=== PATIENT | male | born 1955 | race African-American/Black ===

== ENCOUNTER 2019-08-05 11:52 | Inpatient (IN) | payer OTHER ==
[~2019-08-05] VITALS: Ht 172.7 cm; Wt 95.3 kg
--- NOTE | 2019-08-05 14:05 | NUR ---
[employer] DRIVER NOTE: 63 YEAR OLD MALE ADMITTED TO [facility] FOR CLINICAL TRIAL ON VOLUNTARY STATUS. PT WITH A HISTORY OF SCHIZOPHRENIA WITH ONE PREVIOUS 5150 ADMISSION. PT WITH MEDICAL HISTORY OF HTN. PT DENIES CURRENT SI/HI. REPORTS +AH OF "VOICES" DENIES CAH AND +VH OF "SHADOWS". PT IS AMBULATORY WITH STEADY GAIT. A+OX3, ABLE TO MAKE NEEDS KNOWN. NKDA. PT IS A [employer] WITNESS WITH [employer] FOR NO BLOOD PRODUCTS. COPY PLACED IN CHART. PT IS CONTINENT AND INDEPENDENT WITH ADLS. SKIN INTACT ON ADMISSION.PT ORIENTED TO THE UNIT AND PATIENTS RIGHTS PACKET PROVIDED. PATIENT ID BAND PLACED. VSS, AFEBRILE. WILL CONT TO MONITOR FOR SAFETY AND BEHAVIOR PER [facility] PROT[facility].
[2019-08-05] MEDS ORDERED: MIRT30TA7 PO (14:21)
[2019-08-05] MEDS ORDERED: TAMS-12 PO ×2 (14:21→15:24)
[2019-08-05] MEDS ORDERED: ARIP30TA21 MT (14:21)
[2019-08-05] MEDS ORDERED: MULT-16 MT (14:21)
[2019-08-05] MEDS ORDERED: AMLO-62 MT (14:21)
[2019-08-05] MEDS ORDERED: MAGNESIUM HYDROXIDE 30 ML UDC PO PRN ×2 (14:30→16:30)
[2019-08-05] MEDS ORDERED: ACETAMINOPHEN ES 500 MG TABLET PO PRN (14:30)
[2019-08-05] MEDS ORDERED: MAG HYDROX/AL HYDROX/SIMETH 30 ML UDC PO PRN ×2 (14:30→16:30)
[2019-08-05] MEDS ORDERED: IBUPROFEN 200 MG TABLET PO PRN (14:30)
[2019-08-05] MEDS ORDERED: BENZTROPINE MESYLATE (1 MG) 1 MG TABLET PO PRN ×2 (14:30)
[2019-08-05] MEDS ORDERED: PROPRANOLOL HCL 10 MG TABLET PO PRN (14:30)
[2019-08-05 16:00] VITALS: BP 120/79
[2019-08-05 16:17] VITALS: BP 120/79
[2019-08-05] MEDS ORDERED: ACETAMINOPHEN 325 MG TABLET PO PRN (16:30)
[2019-08-05] MEDS ORDERED: LORAZEPAM 0.5 MG TABLET PO PRN (16:30)
[2019-08-05] MEDS ORDERED: ZOLPIDEM TARTRATE 10 MG TABLET PO PRN (16:30)
[2019-08-05] MEDS ORDERED: BLOOD SUGAR DIAGNOSTIC 1 EACH STRIP IN ONE (16:30)
[2019-08-05] MEDS ORDERED: IBUPROFEN 600 MG TABLET PO PRN (17:07)
--- NOTE | 2019-08-05 19:15 | NUR ---
[facility] RN OPENING NOTES: RECEIVED PATIENT RESTING IN BED, INTERMITTENTLY SLEEPING. A & O X 4, NO ACUTE CHANGES NOTED. NO C/O PAIN VERBALIZED. FLAT AFFECT, PATIENT VERBALIZED OF EXPERIENCING AUDITORY & VISUAL HALLUCINATIONS AT TIMES BUT FEELING OK NOW. ON CLINICAL TRIAL. AMBULATORY, STEADY, CONTINENT OF B & BM. ENVIRONMENTAL SAFETY CHECKS DONE. DENIES SI/HI AT THIS TIME. BED IN LOW LOCKED POSITION. INFORMED THE PATIENT TO CALL FOR HELP ANY TIME & PATIENT VERBALIZED UNDERSTANDING. WILL CONTINUE TO MONITOR Q15 MIN FOR SAFETY, MOOD & BEHAVIOR.
--- NOTE | 2019-08-05 19:30 | NUR ---
[facility] RN NOT: [employer] WITNESS (FYI) PER AM RN REPORT, PT IS A [employer] WITNESS WITH [employer] FOR NO BLOOD PRODUCTS. COPY PLACED IN CHART.
[2019-08-05 20:11] VITALS: BP 132/80
--- NOTE | 2019-08-05 20:35 | NUR ---
[facility] RN NOTE PATIENT'S HOME MED LIST SHOWS THAT HE WAS ON FLOMAX, AMLODIPINE & MULTIVITAMIN, AMLODIPINE HAS BEEN RECONCILED BY MD & FLOMAX HAS BEEN DISCONTINUED. CONFIRMED WITH THE PATIENT HE WOULD LIKE TO CONTINUE HIS MULTIVITAMIN, PATIENT REFUSED TO CONTINUE MULTIVITAMIN AT THIS TIME, STATED," I WAS TAKING IT A YEAR AGO, BUT I DO NOT WANT TO CONTINUE IT ANYMORE." CN MADE AWARE.
--- NOTE | 2019-08-06 06:01 | NUR ---
PATIENT WENT TO SMOKE
--- NOTE | 2019-08-06 06:20 | NUR ---
PATIENT CAME BACK TO THE UNIT FROM SMOKING.
[2019-08-06 06:38] LABS: CHOLESTEROL 155 mg/dL (<200); HDL CHOLESTEROL 48 mg/dL (40-60); LDL 109 mg/dL (0-99); TRIGLYCERIDES 58 mg/dL (30-150)
[2019-08-06 06:46] LABS: BILIRUBIN,TOTAL 0.4 mg/dL (0.2-1.0); CALCIUM, SERUM 8.7 mg/dL (8.5-10.1); CREATININE 1.2 mg/dL (0.6-1.3); POTASSIUM 3.6 mmol/L (3.5-5.1); TOTAL PROTEIN, SERUM 6.5 g/dL (6.4-8.2)
[2019-08-06 08:00] VITALS: BP 127/79
[2019-08-06] MEDS: BENAZEPRIL PO SCH (08:04)
[2019-08-06] MEDS: AMLODIPINE PO SCH (08:04)
--- NOTE | 2019-08-06 08:35 | NUR ---
RN NOTE: RECEIVED PT LYING IN BED. NO ACUTE DISTRESS NOTED. VSS, AFEBRILE. PT A+OX3, ABLE TO MAKE NEEDS KNOWN. PT COMPLIANT WITH MEDICATION ADMINISTRATION AND PLAN OF CARE. PT C/O +AH OF VOICES TELLING HIM "TO BE CAREFUL. SOMEONE WANTS TO HURT YOU" AND +VH OF "SHADOWS". PT AMBULATORY AND INDEPENDENT WITH ADLS AND INTAKE. PT IS ISOLATIVE AND WITHDRAWN WITH FLAT AFFECT. DENIES CURRENT SI/HI. WILL CONT TO MONITOR PT FOR SAFETY AND BEHAVIOR PER [facility] PROT[facility].
[2019-08-06 16:00] VITALS: BP 138/68
--- NOTE | 2019-08-06 19:24 | NUR ---
RN NOTES PATIENT AWAKE, IN BED, ALERT AND ORIENTED X 4. NO SIGNS PF ACUTE DISTRESS. DENIES SI/HI, HEARS VOICES AND SEES SHADOWS. PT IS AMBULATORY AND STEADY. DISCUSSED PLAN OF CARE. BED IN LOWEST POSITION, LOCKED, AND SAFETY PRECAUTIONS IN PLACE. WILL CONTINUE TO MONITOR.
[2019-08-06 20:09] VITALS: BP 127/79
--- NOTE | 2019-08-06 20:37 | NUR ---
RN NOTES PT AMBULATING IN HALLWAY. NO ACUTE DISTRESS NOTED. PT CALM AND COOPERATIVE. COMPLIANT WITH MEDICATION ADMINISTRATION AND PLAN OF CARE. CONT TO REPORT +AH AND +VH. DENIES CAH. NO ADVERSE RXN TO MEDICATIONS NOTED. PT HAS PERIODS OF ISOLATION. FLAT AFFECT. DENIES SI/HI. WILL CONT TO MONITOR
[2019-08-07 08:00] VITALS: BP 150/94
[2019-08-07] MEDS: BENAZEPRIL PO SCH (08:31)
[2019-08-07] MEDS: AMLODIPINE PO SCH (08:31)
--- NOTE | 2019-08-07 09:00 | NUR ---
RN NOTE:Patient alert ,verbally responsive ,poor insight ,poor judgment ,easily irritable and anxious ,no interaction with peers,preoccupied with his own thoughts,patient stated "I hear voices ".patient med compliant and follow directions.
--- NOTE | 2019-08-07 13:00 | NUR ---
RN NOTE:Patient alert ,verbally responsive ,remains isolative and withdrawn stay in his room ,isolative and withdrawn ,patient mood depressed ,preoccupied with his own thoughts ,no plan for self care .
[2019-08-07 16:00] VITALS: BP 136/84
--- NOTE | 2019-08-07 19:10 | NUR ---
[facility] RN OPENING NOTE: RECEIVED PT. AMBULATING IN HALLWAY AND REQUESTED TO GO OUT AND SMOKE. NO ACUTE DISTRESS NOTED. PT CALM AND COOPERATIVE.COMPLIANT W/ PLAN OF CARE.CONT TO REPORT +AH AND +VH. DENIES CAH. NO ADVERSE REACTIONS TO MEDICATIONS NOTED. PT HAS PERIODS OF ISOLATION. FLAT AFFECT.DENIES SI/HI. WILL CONT TO MONITOR
[2019-08-07 20:03] VITALS: BP 125/84
[2019-08-07] MEDS: ZOLPIDEM TARTRATE 10 MG TABLET PO PRN (21:31)
--- NOTE | 2019-08-07 21:31 | NUR ---
[facility] RN NOTE: INSOMNIA PT. UNABLE TO SLEEP AND REQUESTED AMBIEN. ADMINISTERED AMBIEN 10 MG PO PRN ORDERED. WILL CONTINUE TO MONITOR FOR SAFETY AND BEHAVIOR.
[2019-08-08 08:00] VITALS: BP 142/98
--- NOTE | 2019-08-08 08:07 | NUR ---
[facility]/RN-NOTES RECEIVED PATIENT SLEEPING WITH BREATHING EVEN AND NONLABORED EASILY AROUSE. NO ACUTE DISTRESS NOTED.
[2019-08-08] MEDS: AMLODIPINE PO SCH (08:19)
[2019-08-08] MEDS: BENAZEPRIL PO SCH (08:19)
[2019-08-08 16:00] VITALS: BP 129/87
--- NOTE | 2019-08-08 18:39 | NUR ---
[facility]/RN-NOTES PATIENT LAYING IN BED CALM AND COOPERATIVE ABLE TO MAKE NEEDS KNOW. NO ACUTE DISTRESS NOTED. PATIENT OUT SEVERAL TIMES FOR SMOKING. WILL ENDORSE TO INCOMING NURSE FOR CONTINUITY OF CARE.
[2019-08-08 20:00] VITALS: BP 133/86
[2019-08-08] MEDS: ZOLPIDEM TARTRATE 10 MG TABLET PO PRN (20:32)
--- NOTE | 2019-08-08 20:48 | NUR ---
[facility] RN NOTE: PT REPORTED "I HAVE NOT SLEPT WELL FOR A WHILE, I NEED SOMETHING TO HELP ME SLEEP". AMBIEN 10MG 1 TAB GIVEN PO ORDERED AT 2031. WILL CONTINUE TO MONITOR.
--- NOTE | 2019-08-09 00:19 | NUR ---
[facility] RN NOTES: PT IS CURRENTLY SLEEPING, NO S/S OF ANY DISTRESS. WILL CONTINUE TO MONITOR.
[2019-08-09 00:21] VITALS: BP 133/86
--- NOTE | 2019-08-09 03:09 | NUR ---
[facility] RN NOTE: RECEIVED PT AT 1900 IN BED, AWAKE, ALERT AND ORIENTED X3. CALM AND COOPERATIVE, NO S/S OF DISTRESS. RESPIRATION EVEN AND UNLABORED WITH EQUAL RISE AND FALL OF THE CHEST, ON ROOM AIR. PT DENIES SI AT THIS TIME. OFFERED FLUID AND SNACK TOLERATED. SAFETY AND FALL PRECAUTION OBSERVED, CALL MAR WITHIN REACH. Q15 MINUTES OBSERVATION CONTINUED. WILL CONTINUE TO MONITOR PT FOR MOOD, SAFETY AND BEHAVIOR.
[2019-08-09 07:00] VITALS: BP 133/86
[2019-08-09 08:00] VITALS: BP 130/95
--- NOTE | 2019-08-09 08:28 | NUR ---
RN-CO: Patient has a bright affect, visible in the unit and attending group activities in the dining room. He stated that his mood is good, but he has auditory hallucinations telling him to take care of himself. He also stated that last night he had visual hallucinations " they visited me in my room."
[2019-08-09] MEDS: BENAZEPRIL PO SCH (08:38)
[2019-08-09] MEDS: AMLODIPINE PO SCH (08:38)
[2019-08-09 16:00] VITALS: BP 119/79
[2019-08-09 20:00] VITALS: BP 141/100
--- NOTE | 2019-08-09 20:30 | NUR ---
NURSES NOTES: RECEIVED PATIENT IN THE ROOM AWAKE, TALKS MINIMALLY TO STAFF HOWEVER ABLE TO MAKE HIS NEEDS KNOWN. NO HALLUCINATIONS NOTED, NO COMPLAINS OF PAIN NOTED THIS TIME. WILL MONITOR PATIENT. AROUND 2037- PATIENT REQUESTED FOR HIS SLEEPING PILL. ADMINISTERED AMBIEN 10 MG PO A PRN ORDER. WILL MONITOR PATIENT'S SLEEPING PATTERN AND EFFECTIVENESS OF THE MEDICATION.
[2019-08-09] MEDS: ZOLPIDEM TARTRATE 10 MG TABLET PO PRN (20:38)
[2019-08-10 08:00] VITALS: BP 134/97
[2019-08-10] MEDS: BENAZEPRIL PO SCH (08:19)
[2019-08-10] MEDS: AMLODIPINE PO SCH (08:19)
--- NOTE | 2019-08-10 08:55 | NUR ---
[facility]/RN-NOTES RECEIVED PATIENT AMBULATING IN THE HALLWAY NO ACUTE DISTRESS NOTED. COMPLIANT WITH MEDICATIONS. WILL ENDORSE TO INCOMING NURSE FOR CONTINUITY OF CARE.
[2019-08-10 16:00] VITALS: BP 123/79
--- NOTE | 2019-08-10 17:55 | NUR ---
[facility]/RN-NOTES PATIENT CALM,QUIET AND COOPERATIVE NO ACUTE DISTRESS NOTED. COMPLIANT WITH MEDICATIONS.WILL ENDORSE TO INCOMING SHIFT FOR CONTINUITY OF CARE.
[2019-08-10 20:22] VITALS: BP 120/90
[2019-08-10] MEDS: ZOLPIDEM TARTRATE 10 MG TABLET PO PRN (21:11)
[2019-08-10] MEDS ORDERED: AMIT50TA3 PO (21:55)
[2019-08-10] MEDS ORDERED: NAPR-1143 PO (21:55)
[2019-08-10] MEDS ORDERED: OMEP20TA5 PO (21:55)
[2019-08-10] MEDS ORDERED: CITA20TA19 PO (21:55)
[2019-08-10] MEDS ORDERED: ROSU20TA2 PO (21:55)
[2019-08-10] MEDS ORDERED: AMLO5TAB4 PO (21:55)
[2019-08-10] MEDS ORDERED: RISP0.5T20 PO (21:55)
[2019-08-10] MEDS ORDERED: METF-440 PO (21:55)
[2019-08-10] MEDS ORDERED: ASCO500T21 PO (21:55)
[2019-08-10] MEDS ORDERED: ASPI-1420 PO (21:55)
[2019-08-10] MEDS ORDERED: AMIT10TA6 PO (21:55)
--- NOTE | 2019-08-10 22:01 | NUR ---
[facility] RN NOTE: PT REQUESTED FOR SLEEP MEDICATION DUE TO INSOMNIA, AMBIEN 10MG 1 TAB GIVEN PO ORDERED. PT CURRENTLY LAYING IN BED, CALM AND QUIET, WILL CONTINUE TO MONITOR.
--- NOTE | 2019-08-11 06:43 | NUR ---
[facility] RN CLOSING NOTE: PT CURRENTLY SLEEPING. RESPIRATION EVEN AND UNLABORED WITH EQUAL RISE AND FALL OF THE CHEST ON ROOM AIR. NO S/S OF ANY DISTRESS AT THIS TIME. NO BEHAVIORAL ISSUES THIS SHIFT. ENDORSING TO AM SHIFT
[2019-08-11 08:00] VITALS: BP 136/95
[2019-08-11] MEDS: AMLODIPINE PO SCH (08:45)
[2019-08-11] MEDS: BENAZEPRIL PO SCH (08:45)
--- NOTE | 2019-08-11 09:00 | NUR ---
Patient alert ,verbally responsive ,poor insight ,poor judgment ,patient stay in his room ,isolative and withdrawn ,no interaction with peers patient stated "I hear voices telling me people are out there to get me". patient med compliant and follow directions.
--- NOTE | 2019-08-11 13:00 | NUR ---
Patient remains isolative and withdrawn ,no interaction with peers patient leave his room for smoking ,preoccupied with his own thoughts ,refused to attend groups ,no plan for self care .
[2019-08-11 16:00] VITALS: BP 132/85
[2019-08-11] MEDS: ZOLPIDEM TARTRATE 10 MG TABLET PO PRN (21:06)
--- NOTE | 2019-08-11 21:08 | NUR ---
[facility] RN NOTE: INSOMNIA PATIENT STATED THAT HE IS UNABLE TO SLEEP & REQUESTED & INSISTED TO GET HIS AMBIEN RIGHT NOW, PRN AMBIEN 10 MG 1 TAB PO GIVEN, WILL CONTINUE TO MONITOR FOR EFFECTIVENESS.
[2019-08-11 21:15] VITALS: BP 114/79
[2019-08-12 08:00] VITALS: BP 140/88
[2019-08-12] MEDS: AMLODIPINE PO SCH (08:30)
[2019-08-12] MEDS: BENAZEPRIL PO SCH (08:30)
--- NOTE | 2019-08-12 09:00 | NUR ---
RN NOTE- RN NOTE- PT ALERT ORIENTED PERSON PLACE PURPOSE. WITHDRAWN ISOLATIVE MONOSYLLABIC RESPONSES TO QUERY [facility] CONTACT DENIES ALL. PO INTAKE GOOD PACES UNIT NO BEHAVIORAL ISSUES. NOT RESPONDING DIRECTABLE
[2019-08-12 16:00] VITALS: BP 123/71
[2019-08-12] MEDS: LORAZEPAM 1 MG TABLET FOR AGITATION PO PRN (19:25)
--- NOTE | 2019-08-12 20:05 | NUR ---
[facility] RN Note: Patient pacing along the hallway,appears depressed,restless,anxious,blunted affect,no verbalization of thoughts and feelings,no social interactions with peers,guarded and paranoid upon approach.Patient requested for anti anxiety medication,Ativan 1 mg PO given and will monitor for the effectiveness of the medication.Will continue to monitor q15 min rounds for safety.
[2019-08-12 20:10] VITALS: BP 120/79
[2019-08-12] MEDS: ZOLPIDEM TARTRATE 10 MG TABLET PO PRN (21:33)
[2019-08-13 08:00] VITALS: BP 116/83
[2019-08-13] MEDS: BENAZEPRIL PO SCH (08:50)
[2019-08-13] MEDS: AMLODIPINE PO SCH (08:50)
--- NOTE | 2019-08-13 09:00 | NUR ---
RN NOTE:Patient alert ,verbally responsive ,poor insight ,disorganized thoughts no interaction with peers ,no plan for self care .Patient still hearing voices ,will continue to monitor for safety q15 minutes .
--- NOTE | 2019-08-13 13:00 | NUR ---
RN NOTE:Patient remains isolative and withdrawn , stay in his room ,will continue to monitor for safety q15 minutes .
[2019-08-13 16:00] VITALS: BP 146/92
[2019-08-13] MEDS: LORAZEPAM 1 MG TABLET FOR AGITATION PO PRN (18:20)
--- NOTE | 2019-08-13 18:22 | NUR ---
RN NOTE:PATIENT C/O ANXIETY ,MEDICATED WITH ATIVAN 1MG PO X1 ,PATIENT STATED "I STILL HEARING VOICES AND I FEEL ANXIOUS".WILL CONTINUE TO MONITOR .
--- NOTE | 2019-08-13 20:28 | NUR ---
[facility] RN Note: Patient pacing on the unit,calm,cooperative,keep to himself,blunted affect,appears depressed,no verbalization of thoughts and feelings,keep to himself,remain preoccupied to his own thoughts.Patient requested to have sleeping pills be given after taking his smoke break.No s/so f acute distress noted.Will continue to monitor q15 min rounds for safety.
[2019-08-13 20:34] VITALS: BP 109/64
[2019-08-13] MEDS: ZOLPIDEM TARTRATE 10 MG TABLET PO PRN (20:37)
[2019-08-14 08:00] VITALS: BP 115/81
[2019-08-14] MEDS: AMLODIPINE PO SCH (08:39)
[2019-08-14] MEDS: BENAZEPRIL PO SCH (08:39)
--- NOTE | 2019-08-14 10:24 | NUR ---
RN-CO: Patient is visible in the unit, attends group activities and 1:1 activities. With periods of pacing in the hallway, and preoccupied with his thoughts. He is redirectable and follows directions, however he is focus on smoking. He has an appropriate affect.
[2019-08-14] MEDS: LORAZEPAM 1 MG TABLET FOR AGITATION PO PRN (14:32)
--- NOTE | 2019-08-14 14:34 | NUR ---
RN [facility] NOTE JEREMY STATED "CAN I GET AN ATIVAN I'M FEELING REALLY ANXIOUS". ADMINISTERED ATIVAN 1MG TAB PRN @1432. WILL REASSESS AND CONTINUE TO MONITOR Q15MIN FOR SAFETY AND BEHAVIOR.
[2019-08-14 16:00] VITALS: BP 132/71
--- NOTE | 2019-08-14 19:20 | NUR ---
[facility] RN OPENING NOTE: RECEIVED PT. RESTING HIS ROOM. NO ACUTE DISTRESS NOTED. PT CALM AND COOPERATIVE AT THIS TIME.COMPLIANT WITH PLAN OF CARE.DENIES SI HI AT THIS TIME. DEPRESSED. FLAT AFFECT. WILL CONT TO MONITOR FOR SAFETY AND BEHAVIOUR .
[2019-08-14 20:00] VITALS: BP 126/97
[2019-08-14] MEDS: ZOLPIDEM TARTRATE 10 MG TABLET PO PRN (21:51)
--- NOTE | 2019-08-14 21:52 | NUR ---
[facility] RN NOTE: INSOMNIA PT. UNABLE TO SLEEP AND REQUESTED AMBIEN. ADMINISTERED AMBIEN 10 MG PO PRN ORDERED. WILL CONTINUE TO MONITOR FOR SAFETY AND BEHAVIOR.
--- NOTE | 2019-08-15 07:00 | NUR ---
[facility] RN NOTES: PT. RESTING HIS ROOM AT THIS TIME , NO BEHAVIOR PROBLEMS NOTED , NO CHANGES OF CONDITION NOTED, PT. DENIES ANY PAIN OR DISCOMFORT , WILL CONTINUITY WITH CARE.
[2019-08-15 08:00] VITALS: BP 133/73
--- NOTE | 2019-08-15 08:00 | NUR ---
[facility] OPENING NOTES Received Patient awake and resting in bed. A/O x 3. VS stable with no acute distress. Breathing even and unlabored on room air with no respiratory distress. Denies pain. No signs and symptoms of pain. Denies SI/HI. Safety precautions in place. Patient compliant with medications and care. Flat affect, depressed. All needs rendered at this time. Call light within reach. Will continue to monitor for safety and behaviour. .
[2019-08-15] MEDS: BENAZEPRIL PO SCH (08:52)
[2019-08-15] MEDS: AMLODIPINE PO SCH (08:52)
[2019-08-15 15:51] VITALS: BP 102/56
--- NOTE | 2019-08-15 19:39 | NUR ---
RECEIVED PATIENT IN THE ROOM AWAKE ALERT X 3 WALKING IN THE HALLWAY AT THIS TIME DENIES ANY PAIN OR DISCOMFORT AT THIS TIME, NO DISTRESS NOTED. ON ROOM AIR BREATHING EVEN UNLABORED, PATIENT IS CALM COOPERATIVE AT THIS TIME, EASILY RE- DIRECTIVE ABLE TO FOLLOW THE COMMANDS, COMPLAIN OF INSOMNIA TOLD THE PATIENT WILL GIVE SLEEPING PILLS LATER AT 9 PM PATIENT UNDERSTAND WILL CONTINUES TO MONITOR THE PATIENT EVERY 2 HRS. FOR FALL AND SAFETY AND MONITOR THE PATIENT EVERY 15 MINS
[2019-08-15] MEDS: ZOLPIDEM TARTRATE 10 MG TABLET PO PRN (21:37)
[2019-08-16 08:00] VITALS: BP 109/55
[2019-08-16] MEDS: BENAZEPRIL PO SCH (09:06)
[2019-08-16] MEDS: AMLODIPINE PO SCH (09:06)
[2019-08-16 16:00] VITALS: BP 100/55
[2019-08-16] MEDS: ZOLPIDEM TARTRATE 10 MG TABLET PO PRN (20:42)
--- NOTE | 2019-08-16 21:48 | NUR ---
[facility] RN NOTE: RECEIVED PT AMBULATING IN HALLWAY, AWAKE, ALERT AND ORIENTED X3. CALM AND COOPERATIVE, NO S/S OF DISTRESS. RESPIRATION EVEN AND UNLABORED WITH EQUAL RISE AND FALL OF THE CHEST, ON ROOM AIR WITH SPO2 OF 97%. PT DENIES SI, HI AT THIS TIME. OFFERED FLUID AND SNACK TOLERATED. SAFETY AND FALL PRECAUTION OBSERVED, CALL MAR WITHIN REACH. Q15 MINUTES OBSERVATION CONTINUED. WILL CONTINUE TO MONITOR PT FOR MOOD, SAFETY AND BEHAVIOR.
--- NOTE | 2019-08-16 21:52 | NUR ---
[facility] RN NOTE: AT 0 PT REQUESTED FOR SLEEP MEDICATION, AMBIEN 10MG 1 TAB GIVEN PO FOR SLEEP ORDERED. PT CURRENTLY SLEEPING WITH NO S/S OF ANY DISTRESS. RESPIRATION EVEN AND UNLABORED WITH EQUAL RISE AND FALL OF THE CHEST ON ROOM AIR. WILL CONTINUE TO MONITOR.
[2019-08-16 23:26] VITALS: BP 111/65
[2019-08-16 23:39] VITALS: BP 111/65
--- NOTE | 2019-08-17 00:03 | NUR ---
[facility] RN NOTE: PT WOKE UP AT ABOUT 2240 AND REQUESTED TO GO OUTSIDE THE UNIT TO SMOKE HIS CIGARETTE, AFTER SMOKING PT WAS UP WALKING AROUND THE UNIT UNTIL 2345 BEFORE GOING BACK TO SLEEP AT ABOUT 2400. WILL CONTINUE TO MONITOR FOR SAFETY, MOOD, AND BEHAVIOR.
--- NOTE | 2019-08-17 02:36 | NUR ---
[facility] RN NOTE: PT UP AGAIN, WALKING BACK AND FORTH IN HALLWAY, TOLD SKILLED NURSE "I'M HAVING MY MORNING EXERCISE. WILL CONTINUE TO MONITOR FOR SAFETY, MOOD, AND BEHAVIOR.
--- NOTE | 2019-08-17 06:33 | NUR ---
[facility] RN CLOSING NOTE: PT CURRENTLY SITTING ON SIDE OF BED, AWAKE, ALERT AND ORIENTED X3. PT SLEPT FOR ABOUT 3 HR LAST NIGHT EVEN THOUGH PT REQUESTED FOR SLEEP MEDICATION AND HAD AMBIEN 10MG 1 TAB PO ORDERED FOR SLEEP. PT RESPIRATION IS EVEN AND UNLABORED WITH EQUAL RISE AND FALL OF THE CHEST, ON ROOM AIR. NO S/S OF ANY DISTRESS AT THIS TIME. NO BEHAVIORAL ISSUES THIS SHIFT. ENDORSING TO AM SHIFT
[2019-08-17 08:00] VITALS: BP 136/73
[2019-08-17] MEDS: BENAZEPRIL PO SCH (08:45)
[2019-08-17] MEDS: AMLODIPINE PO SCH (08:45)
--- NOTE | 2019-08-17 13:20 | NUR ---
RN LOOKING FOR PT. OFF UNIT TO SMOKE FOR APPROX. 45 MINUTES.DIRECTOR [employer] OUT OF UNIT TO LOCATE PT.
--- NOTE | 2019-08-17 13:30 | NUR ---
PT. BACK TO UNIT.MEANWHILE PT. INFORMED REINALDO JONES THAT HE WAS DOING LAUNDRY-DR. JOHNSON CONTACTED REGARDING EXT. TIME OFF UNIT. AWAITING CALL BACK.
--- NOTE | 2019-08-17 15:00 | NUR ---
AGAIN PT. OFF UNIT.[employer] MACHINE SETTER OUT TO LOOK FOR PT.FOUND OUTSIDE.STATES HE IS WAITING FOR LAUNDRY.
[2019-08-17 16:00] VITALS: BP 103/73
--- NOTE | 2019-08-17 18:44 | NUR ---
IN RM. AND ISOLATIVE.NO COMPLAINTS OFFERED.
[2019-08-17 20:10] VITALS: BP 123/65
[2019-08-17] MEDS: ZOLPIDEM TARTRATE 10 MG TABLET PO PRN (20:43)
--- NOTE | 2019-08-17 20:45 | NUR ---
[facility]PS RN NOTE; PT REQUESTED FOR SLEEP MEDICATION FOR INSOMNIA. AMBIEN 10MG 1 TAB GIVEN PO. WILL CONTINUE TO MONITOR.
--- NOTE | 2019-08-17 22:50 | NUR ---
[facility]PS RN NOTE: PT SLEEPING, NO S/S OF DISTRESS. RESPIRATION EVEN AND UNLABORED WITH EQUAL RISE AND FALL OF THE CHEST, ON ROOM AIR. WILL CONTINUE TO MONITOR.
--- NOTE | 2019-08-18 03:02 | NUR ---
[facility]PS RN NOTE: RECEIVED PT AMBULATING IN HALLWAY, AWAKE, ALERT AND ORIENTED X3. CALM NAD COOPERATIVE, INTERACTING WITH STAFF. APPROPRIATE AFFECT. NO BEHAVIORAL ISSUES. NO S/S OF DISTRESS. RESPIRATION EVEN AND UNLABORED WITH EQUAL RISE AND FALL OF THE CHEST. VITAL SIGNS WNL. PT DENIES SI AT THIS TIME. OFFERED FLUID AND SNACK TOLERATED. SAFETY AND FALL PRECAUTION OBSERVED, CALL MAR WITHIN REACH. Q15 MINUTES OBSERVATION CONTINUED. WILL CONTINUE TO MONITOR PT FOR MOOD, SAFETY AND BEHAVIOR.
--- NOTE | 2019-08-18 06:40 | NUR ---
[facility]PS RN CLOSING NOTE: PT AWAKE, ALERT AND ORIENTED X3. SLEPT FOR ABOUT 8 HR LAST NIGHT AFTER REQUESTING FOR SLEEP MEDICATION AND HAD AMBIEN 10MG 1 TAB PO ORDERED FOR SLEEP. PER PT "I HAD A GOOD NIGHT". NO S/S OF ANY DISTRESS AT THIS TIME. NO BEHAVIORAL ISSUES THIS SHIFT. ENDORSING TO AM SHIFT
[2019-08-18 08:00] VITALS: BP 100/72
[2019-08-18] MEDS: AMLODIPINE PO SCH (08:36)
[2019-08-18] MEDS: BENAZEPRIL PO SCH (08:36)
--- NOTE | 2019-08-18 09:00 | NUR ---
Patient alert ,verbally responsive ,ox3 ,no c/o pain ,med complaint isolative and withdrawn ,no plan for self care .will continue to monitor
[2019-08-18] MEDS ORDERED: LORAZEPAM 1 MG TABLET FOR AGITATION PO PRN (12:00)
--- NOTE | 2019-08-18 13:00 | NUR ---
Patient cooperative ,follow directions ,responding to internal stimuli patient stated " I still hear voices", unable to say what voices telling him .Patient remains isolative and withdrawn ,no plan for self care will continue to monitor .
[2019-08-18 16:00] VITALS: BP 130/90
[2019-08-18] MEDS: LORAZEPAM 1 MG TABLET FOR AGITATION PO PRN (17:44)
--- NOTE | 2019-08-18 17:55 | NUR ---
RN NOTE:PATIENT C/O ANXIETY ,MEDICATED WITH ATIVAN 1MG PO X1.
--- NOTE | 2019-08-18 19:20 | NUR ---
PT IN ROOM, A/O X3, NO SIGNS OF DISTRESS. PATIENT CALM COOPERTIVE AT THIS TIME, QUIET, ISOLATIVE AND COOPERATIVE WITH CARE. APPROACHABLE AND INTERACTED WITH STAFF ENCOURAGED PT. TO VERBALIZED ANY FEELING OR CONCERN. REDIRECTABL, ALL NEEDS ATTENDED ANTICIPATED, DENIES SI/HI AT THIS TIME. WILL CONTINUE TO MONITOR Q15 MIN FOR SAFETY AND BEHAVIOR.
[2019-08-18 20:30] VITALS: BP 123/84
[2019-08-18] MEDS: ZOLPIDEM TARTRATE 10 MG TABLET PO PRN (20:53)
--- NOTE | 2019-08-18 20:55 | NUR ---
[facility]PS RN NOTE: INSOMNIA PATIENT COMPLAINED OF INSOMNIA AND REQUESTED AN AMBIEN. ADMINISTERED AMBIEN 10MG PRN @2052. WILL REASSESS AT 2152 AND MONITOR Q15 MIN FOR SAFETY AND BEHAVIOR.
--- NOTE | 2019-08-19 07:08 | NUR ---
[facility]PS RN CLOSING NOTE PT AWAKE, ALERT AND ORIENTED X3. SLEPT FOR ABOUT 7 HR LAST NIGHT AFTER REQUESTING FOR SLEEP MEDICATION AND HAD AMBIEN 10MG 1 TAB PO ORDERED FOR SLEEP AT 2052. PT STATED HE SLEPT WELL. WOKE UP AT 0500 FOR A SMOKE BREAK. NO S/S OF ANY DISTRESS AT THIS TIME. NO BEHAVIORAL ISSUES THIS SHIFT. ENDORSING TO AM SHIFT
[2019-08-19 08:00] VITALS: BP 136/84
[2019-08-19] MEDS: AMLODIPINE PO SCH (08:02)
[2019-08-19] MEDS: BENAZEPRIL PO SCH (08:02)
--- NOTE | 2019-08-19 09:23 | NUR ---
RN NOTE: RECEIVED PT AMBULATING IN HALLWAY. NO ACUTE DISTRESS NOTED. VSS, AFEBRILE. PT A+OX3, ABLE TO MAKE NEEDS KNOWN. AMBULATORY AND VISIBLE ON THE UNIT. COOPERATIVE WITH FLAT AFFECT. NO S/SX OF ADVERSE MEDICATION RXN NOTED. PT COMPLIANT WITH MEDICATION ADMINISTRATION AND PLAN OF CARE. DENIES CURRENT AH/VH. DENIES SI/HI. INDEPENDENT WITH INTAKE AND ADLS. WILL CONT TO MONITOR PER PROTOCOL
[2019-08-19 16:00] VITALS: BP 138/79
[2019-08-19] MEDS: LORAZEPAM 1 MG TABLET FOR AGITATION PO PRN (16:54)
--- NOTE | 2019-08-19 16:55 | NUR ---
RN NOTE: ANXIETY PT C/O INCREASING ANXIETY. REQUESTING ATIVAN. ATIVAN 1MG PO PRN ADMINISTERED
--- NOTE | 2019-08-19 20:05 | NUR ---
[facility]PS RN NOTES: OPENING RECEIVED PT IN ROOM, A/O X3, NO SIGNS OF DISTRESS. NO PAIN AT THIS TIME. NO SOB. BREATHING EVEN AND UNLABORED. PATIENT CALM COOPERATIVE AT THIS TIME, QUIET, ISOLATIVE, RESERVED, GUARDED AT TIMES, AND COOPERATIVE WITH CARE. APPROACHABLE AND INTERACTED WITH STAFF. PT IS FRIENDLY WHEN MAKING CONVERSATIONS.ENCOURAGED PT. TO VERBALIZED ANY FEELING OR CONCERN.ALL NEEDS ATTENDED ANTICIPATED. PT DENIES SI/HI AT THIS TIME. WILL CONTINUE TO MONITOR Q15 MIN FOR SAFETY AND BEHAVIOR.
[2019-08-19 20:16] VITALS: BP 138/85
[2019-08-19] MEDS: [UNRECOGNIZED DRUG - OTHER] PO SCH (21:02)
[2019-08-19 22:10] VITALS: BP 139/93
[2019-08-19] MEDS: ZOLPIDEM TARTRATE 10 MG TABLET PO PRN (22:16)
--- NOTE | 2019-08-19 22:17 | NUR ---
[facility]PS RN NOTE: INSOMNIA PATIENT C/O OF INSOMNIA AND REQUESTED AN AMBIEN. PTS VITALS WNL. NO SOB. NO RESP DISTRESS. BREATHING EVEN AND UNLABORED. ADMINISTERED AMBIEN 10MG PRN ORDERED. [id number] TO MONITOR.
--- NOTE | 2019-08-20 06:48 | NUR ---
[facility]PS RN NOTES: CLOSING PT IS AWAKE AND IN BED. PT IS CALM, COOPERATIVE, AND FRIENDLY. NO SOB. NO RESP DISTRESS. BREATHING EVEN AND UNLABORED. NO PAIN AT THIS TIME. CONTINUE TO MONITOR.
[2019-08-20 08:00] VITALS: BP 123/71
[2019-08-20] MEDS: BENAZEPRIL PO SCH (08:40)
[2019-08-20] MEDS: AMLODIPINE PO SCH (08:40)
--- NOTE | 2019-08-20 09:00 | NUR ---
Patient alert med compliant cooperative ,follow directions ,responding to internal stimuli .Patient isolative and withdrawn no interaction with peers no plan for self care will continue to monitor for safety q15 minutes .
--- NOTE | 2019-08-20 13:00 | NUR ---
Patient cooperative ,follow directions ,responding to internal stimuli patient stated " I still hear voices telling me look over there ,look over here". Patient remains isolative and withdrawn ,no plan for self care will continue to monitor for saftey [id number].
[2019-08-20] MEDS: LORAZEPAM 1 MG TABLET FOR AGITATION PO PRN (15:10)
[2019-08-20 16:00] VITALS: BP 108/69
[2019-08-20 19:57] VITALS: BP 117/67
--- NOTE | 2019-08-20 20:07 | NUR ---
GPS RN NOTES: OPENING RECEIVED PT IN ROOM, A/O X3, NO SIGNS OF RESP DISTRESS. NO SOB. BREATHING EVEN AND UNLABORED. PATIENT CALM, FRIENDLY, QUIET, ISOLATIVE, RESERVED, GUARDED AT TIMES BUT COMES OUT OF HIS ROOM AND WALKS IN THE HALLWAY, AND COOPERATIVE WITH PLAN CARE. PT IS APPROACHABLE AND INTERACTED WITH STAFF.ENCOURAGED PT. TO VERBALIZED ANY FEELING OR CONCERN.ALL NEEDS ATTENDED ANTICIPATED. PT DENIES SI/HI AT THIS TIME. HEATH MAR WITHIN REACH. WILL CONTINUE TO MONITOR Q15 MIN FOR SAFETY AND BEHAVIOR.
[2019-08-20] MEDS: [UNRECOGNIZED DRUG - OTHER] PO SCH (21:02)
[2019-08-20 22:19] VITALS: BP 134/89
[2019-08-20] MEDS: ZOLPIDEM TARTRATE 10 MG TABLET PO PRN (22:22)
--- NOTE | 2019-08-20 22:23 | NUR ---
GPS RN NOTE: INSOMNIA PATIENT C/O OF INSOMNIA AND REQUESTED AN AMBIEN. PTS VITALS WNL. NO SOB. NO RESP DISTRESS. BREATHING EVEN AND UNLABORED. ADMINISTERED AMBIEN 10MG PRN ORDERED. [id number] TO MONITOR.
[2019-08-21 08:00] VITALS: BP 115/77
[2019-08-21] MEDS: AMLODIPINE PO SCH (09:11)
[2019-08-21] MEDS: BENAZEPRIL PO SCH (09:11)
--- NOTE | 2019-08-21 15:14 | NUR ---
RN-CO: Patient is visible in the unit, cooperative to unit rules. Go out for smoking (5-10 min). Still with appropriate affect. Seen playing board games with activity therapist.
--- NOTE | 2019-08-21 15:16 | NUR ---
RN-CO: Patient also noted pacing in the hallway, when asked if he still experience auditory hallucinations he said " yes."
[2019-08-21 16:00] VITALS: BP 137/90
--- NOTE | 2019-08-21 18:00 | NUR ---
UNEVENTFUL DAY,OFF FLOOR SEVERAL TIMES TO SMOKE.MED COMPLIANT.DR. JOHNSON IN TO SEE PT.
--- NOTE | 2019-08-21 19:25 | NUR ---
GPS-RN NOTE: RECEIVED PATIENT PACING IN THE HALLWAY. ALERT AND ORIENTED X3. NO ACUTE DISTRESS NOTED. ANXIOUS, RESTLESS, BLUNTED AFFECT, APPEARS DEPRESSED, PARANOID UPON APPROACH. DENIES SI/HI/AVH AT THIS TIME. VERBALIZATION OF FEELINGS ENCOURAGED. SAFETY PRECAUTIONS IMPLEMENTED. WILL CONTINUE TO MONITOR Q15MIN ROUNDS FOR SAFETY AND BEHAVIOR.
[2019-08-21 20:03] VITALS: BP 133/73
[2019-08-21] MEDS: [UNRECOGNIZED DRUG - OTHER] PO SCH (21:25)
[2019-08-21] MEDS: ZOLPIDEM TARTRATE 10 MG TABLET PO PRN (22:13)
--- NOTE | 2019-08-21 22:13 | NUR ---
GPS RN NOTE: INSOMNIA PATIENT C/O OF INABILITY TO SLEEP. PT REQUESTED FOR AMBIEN. ADMINISTERED AMBIEN 10MG PRN ORDERED. WILL CONTINUE TO MONITOR.
[2019-08-22 08:00] VITALS: BP 131/94
[2019-08-22 08:03] VITALS: BP 131/94
[2019-08-22] MEDS: BENAZEPRIL PO SCH (08:06)
[2019-08-22] MEDS: AMLODIPINE PO SCH (08:06)
--- NOTE | 2019-08-22 08:14 | NUR ---
[facility]PS RN note: Received patient AOX3. Patient reports sleeping well with 7 hours of sleep. Patient is cooperative with treatment plan and medication administration. Denies SH/SI/HI. When asked about auditory and visual hallucinations patient stated, "yeah, everything remains the same". Will continue to monitor Q15.
[2019-08-22] MEDS ORDERED: LORAZEPAM 1 MG TABLET FOR AGITATION PO PRN (12:00)
[2019-08-22 16:00] VITALS: BP 116/76
[2019-08-22] MEDS: LORAZEPAM 1 MG TABLET FOR AGITATION PO PRN (16:56)
--- NOTE | 2019-08-22 17:00 | NUR ---
[facility]PS RN note: ativan Patient requested Ativan for anxiety. 1mg administered as ordered. Will continue to monitor
--- NOTE | 2019-08-22 20:00 | NUR ---
gps rn notes: received patient walking along the hallways, appears unkempt, and disheveled however patient remains quiet and keeps to himself. patient admits to hallucinations however not elaborating specifically his hallucinations. no complains of pain or discomfort this time of assessment. no aggressive behavior noted this time. will administer ordered medications. night time snacks provided as tolerated. safety and fall precautions observed. attended to all patient's needs. will continue to monitor patient for mood, safety and behavior.
[2019-08-22 20:21] VITALS: BP 125/82
[2019-08-22] MEDS: [UNRECOGNIZED DRUG - OTHER] PO SCH (21:08)
[2019-08-22] MEDS: ZOLPIDEM TARTRATE 10 MG TABLET PO PRN (22:45)
--- NOTE | 2019-08-22 22:49 | NUR ---
[facility]PS RN NOTES: PATIENT STATED HE NEEDS HIS AMBIEN TO SLEEP,HE THEN REQUESTED FOR THE MEDICATION. AMBIEN 10 MG PO GIVEN PO PRN ORDER. WILL MONITOR EFFICACY OF MEDICATION.
[2019-08-23] MEDS: LORAZEPAM 1 MG TABLET FOR AGITATION PO PRN ×2 (06:35→17:44)
--- NOTE | 2019-08-23 06:37 | NUR ---
[facility] RN NOTES: PATIENT APPROACHED NURSE ASSIGNED REQUESTING FOR AN ATIVAN MEDICATION. NOTED PATIENT TO BE PACING WHILE IN THE ROOM AND IN THE HALLWAYS AT TIMES. ATIVAN 1MG PO GIVEN A PRN ORDER. WILL MONITOR EFFICACY OF MEDICATION.
[2019-08-23 08:00] VITALS: BP 124/87
[2019-08-23] MEDS: AMLODIPINE PO SCH (08:09)
[2019-08-23] MEDS: BENAZEPRIL PO SCH (08:09)
[2019-08-23 16:00] VITALS: BP 124/79
[2019-08-23 20:13] VITALS: BP 119/74
[2019-08-23] MEDS: [UNRECOGNIZED DRUG - OTHER] PO SCH (21:04)
[2019-08-23] MEDS: ZOLPIDEM TARTRATE 10 MG TABLET PO PRN (21:53)
[2019-08-24 08:00] VITALS: BP 138/83
[2019-08-24] MEDS: AMLODIPINE PO SCH (08:05)
[2019-08-24] MEDS: BENAZEPRIL PO SCH (08:05)
[2019-08-24] MEDS: LORAZEPAM 1 MG TABLET FOR AGITATION PO PRN (09:27)
[2019-08-24 16:00] VITALS: BP 126/85
--- NOTE | 2019-08-24 20:33 | NUR ---
GPS RN NOTES: RECEIVED PT IN HALLWAY AWAKE, ALERT AND ORIENTED 3. APPROPRIATE AFFECT, THOUGHT PROCESS INTACT, COOPERATIVE, ABLE TO MAKE NEEDS KNOWN. LEFT UNIT TO GO SMOKE CIGARETTE AT 1920 AND CAME BACK AT 1934. HAD EGG SANDWICH FOR NOURISHMENT/CONSUMED 100%. NO S/S OF DISTRESS. RESPIRATION EVEN AND UNLABORED WITH EQUAL RISE AND FALL OF THE CHEST, ON ROOM AIR. PT DENIES SI AT THIS TIME. OFFERED FLUID TOLERATED. SAFETY AND FALL PRECAUTION OBSERVED, CALL MAR WITHIN REACH. Q15 MINUTES OBSERVATION CONTINUED. WILL CONTINUE TO MONITOR PT FOR MOOD, SAFETY AND BEHAVIOR.
[2019-08-24] MEDS: [UNRECOGNIZED DRUG - OTHER] PO SCH (21:23)
[2019-08-24] MEDS: ZOLPIDEM TARTRATE 10 MG TABLET PO PRN (21:24)
--- NOTE | 2019-08-24 22:29 | NUR ---
GPS RN NOTES: PT REQUESTED FOR SLEEPING PILL AT 2119. AMBIEN 10MG GIVEN PO ORDERED AT 2123. PT CURRENTLY SLEEPING, RESPIRATION EVEN AND UNLABORED WITH EQUAL RISE AND FALL OF THE CHEST. NO S/S OF DISTRESS AT THIS TIME. WILL CONTINUE TO MONITOR.
[2019-08-25 04:16] VITALS: BP 124/76
--- NOTE | 2019-08-25 06:38 | NUR ---
GPS RN CLOSING NOTE: PT IS AWAKE, ALERT AND ORIENTED X3. CALM AND COOPERATIVE. LEFT THE UNIT FOR A SMOKE AT 0620 AND CAME BACK AT 0640. SLEPT FOR 6HR 30MINS LAST NIGHT AFTER REQUESTING AND TAKING AMBIEN 10MG 1 TAB PO ORDERED FOR SLEEP. CURRENTLY PT HAS NO S/S OF ANY DISTRESS AND NO BEHAVIORAL ISSUES THIS SHIFT. ENDORSING TO AM SHIFT.
[2019-08-25 08:00] VITALS: BP 120/92
[2019-08-25] MEDS: AMLODIPINE PO SCH (08:38)
[2019-08-25] MEDS: BENAZEPRIL PO SCH (08:38)
--- NOTE | 2019-08-25 09:57 | NUR ---
RN-CO: PATIENT IS VISIBLE IN THE UNIT, CALM AND COOPERATIVE TO CARE. WATCHES TV IN THE DAY ROOM. PATIENT STATED THAT HIS VISUAL AND AUDITORY HALLUCINATIONS ARE STILL THE SAME SINCE HE CAME IN THE UNIT. HOWEVER HE STATED THAT HIS MOOD IS A LOT BETTER SINCE HIS ADMISSION HERE. HE SMOKES > 3 TIMES IN MY SHIFT.
[2019-08-25] MEDS: LORAZEPAM 1 MG TABLET FOR AGITATION PO PRN (11:27)
--- NOTE | 2019-08-25 11:43 | NUR ---
RN-CO: ATIVAN WAS GIVEN DUE TO C/O MODERATE ANXIETY.
[2019-08-25 16:00] VITALS: BP 121/71
[2019-08-25 20:00] VITALS: BP 120/80
--- NOTE | 2019-08-25 20:16 | NUR ---
GPS RN NOTES: RECEIVED PT AT 1900 WALKING BACK AND FORTH IN HALLWAY ALERT AND ORIENTED X3. PER PT "I'M EXERCISING TO STAY HEALTHY". APPROPRIATE AFFECT, THOUGHT PROCESS INTACT, CALM, COOPERATIVE, ABLE TO MAKE NEEDS KNOWN. NO S/S OF DISTRESS. RESPIRATION EVEN AND UNLABORED WITH EQUAL RISE AND FALL OF THE CHEST, ON ROOM AIR WITH SPO2 OF 100%. PT DENIES SI AT THIS TIME. OFFERED FLUID AND SNACK TOLERATED. SAFETY AND FALL PRECAUTION OBSERVED, CALL MAR WITHIN REACH. Q15 MINUTES AND Q 1HR OBSERVATION CONTINUED. WILL CONTINUE TO MONITOR PT SAFETY, MOOD AND BEHAVIOR.
[2019-08-25 20:27] VITALS: BP 134/80
[2019-08-25] MEDS: [UNRECOGNIZED DRUG - OTHER] PO SCH (21:32)
[2019-08-25] MEDS: ZOLPIDEM TARTRATE 10 MG TABLET PO PRN (22:04)
--- NOTE | 2019-08-25 22:10 | NUR ---
GPS RN NOTES: PT REQUESTED AMBIEN FOR INSOMNIA. AMBIEN 10MG 1 TAB GIVEN PO ORDERED. PT CURRENTLY LAYING ON BED. WILL CONTINUE TO MONITOR.
--- NOTE | 2019-08-26 06:39 | NUR ---
GPS RN CLOSING NOTE: PT IS AWAKE, ALERT AND ORIENTED X3. CALM AND COOPERATIVE. LEFT THE UNIT FOR A SMOKE AT 0555 AND CAME BACK AT 0606. SLEPT FOR 8 HR LAST NIGHT AFTER REQUESTING AND TAKING AMBIEN 10MG 1 TAB PO ORDERED FOR SLEEP. CURRENTLY PT HAS NO S/S OF ANY DISTRESS AND NO BEHAVIORAL ISSUES THIS SHIFT. ENDORSING TO AM SHIFT.
[2019-08-26 08:00] VITALS: BP 114/72
[2019-08-26] MEDS: AMLODIPINE PO SCH (08:12)
[2019-08-26] MEDS: BENAZEPRIL PO SCH (08:12)
[2019-08-26] MEDS: LORAZEPAM 1 MG TABLET FOR AGITATION PO PRN (12:38)
[2019-08-26 16:00] VITALS: BP 111/72
--- NOTE | 2019-08-26 18:28 | NUR ---
rn notes patient remains a/o x4, denies SI, no hallucinations noted, ambulatory with steady gait. Took smoking breaks. Med compliant.
--- NOTE | 2019-08-26 19:18 | NUR ---
GPS-RN NOTE: RECEIVED PATIENT RESTING IN BED. A/OX3, NO ACUTE DISTRESS NOTED. PT IS CALM, COOPERATIVE WITH CARE, BLUNTED AFFECT, APPEARS DEPRESSED, DENIES SI/HI/AVH AT THIS TIME. ON INVESTIGATIONAL MEDICATION WITH NO ADVERSE REACTIONS NOTED. PT. REQUESTED FOR A SMOKE BREAK AND CAME BACK AFTER 10MINS TO THE UNIT. VERBALIZATION OF FEELINGS ENCOURAGED. SAFETY PRECAUTIONS IMPLEMENTED. WILL CONTINUE TO MONITOR Q15MIN ROUNDS FOR SAFETY AND BEHAVIOR.
[2019-08-26 19:53] VITALS: BP 119/79
[2019-08-26] MEDS: [UNRECOGNIZED DRUG - OTHER] PO SCH (21:05)
[2019-08-26] MEDS: ZOLPIDEM TARTRATE 10 MG TABLET PO PRN (21:43)
--- NOTE | 2019-08-26 21:43 | NUR ---
GPS RN NOTE: INSOMNIA PATIENT C/O OF INABILITY TO SLEEP. PT REQUESTED FOR AMBIEN. ADMINISTERED AMBIEN 10MG PRN ORDERED. WILL CONTINUE TO MONITOR.
[2019-08-27 08:00] VITALS: BP 118/70
[2019-08-27] MEDS: BENAZEPRIL PO SCH (08:45)
[2019-08-27] MEDS: AMLODIPINE PO SCH (08:45)
--- NOTE | 2019-08-27 09:00 | NUR ---
RECEIVED PT. THIS AM,VS STABLE,PLEASANT.MED COMPLIANT.
--- NOTE | 2019-08-27 11:50 | NUR ---
LEFT FLOOR TO SMOKE.
[2019-08-27] MEDS: LORAZEPAM 1 MG TABLET FOR AGITATION PO PRN (12:32)
--- NOTE | 2019-08-27 12:32 | NUR ---
MEDICATED FOR ANXIETY WITH ATIVAN PO.
[2019-08-27 15:55] VITALS: BP 115/71
--- NOTE | 2019-08-27 18:27 | NUR ---
no change in status.
[2019-08-27 20:08] VITALS: BP 122/73
--- NOTE | 2019-08-27 20:23 | NUR ---
GPS RN NOTES: OPENING RECEIVED PATIENT WALKING IN AND OUT OF HIS ROOM. PT GOES TO DAY ROOM AND WATCH TV. PT IS A/OX3, NO ACUTE DISTRESS NOTED. BREATHING EVEN AND UNLABORED. NO SOB. NO PAIN AT THIS TIME. PT IS CALM, COOPERATIVE WITH CARE, QUIET, DEPRESSED, AND TRYS TO INTERACT W/ PEERS. PT DENIES SI/HI AT THIS TIME. ON INVESTIGATIONAL MEDICATION WITH NO ADVERSE REACTIONS NOTED. PT. REQUESTED FOR SMOKE BREAK AND CAME BACK AFTER 10MINS TO THE UNIT. VERBALIZATION OF FEELINGS ENCOURAGED. SAFETY PRECAUTIONS IMPLEMENTED. WILL CONTINUE TO MONITOR Q15MIN ROUNDS FOR SAFETY AND BEHAVIOR.
[2019-08-27] MEDS: [UNRECOGNIZED DRUG - OTHER] PO SCH (21:02)
[2019-08-27 22:15] VITALS: BP 126/84
[2019-08-27] MEDS: ZOLPIDEM TARTRATE 10 MG TABLET PO PRN (22:18)
--- NOTE | 2019-08-27 22:21 | NUR ---
GPS RN NOTE: INSOMNIA PATIENT C/O OF INSOMNIA AND REQUESTED AN AMBIEN. PTS VITALS WNL. NO SOB. NO RESP DISTRESS. BREATHING EVEN AND UNLABORED. ADMINISTERED AMBIEN 10MG PRN ORDERED. [id number] TO MONITOR.
[2019-08-28 08:00] VITALS: BP 104/84
[2019-08-28] MEDS: BENAZEPRIL PO SCH (08:21)
[2019-08-28] MEDS: AMLODIPINE PO SCH (08:21)
--- NOTE | 2019-08-28 09:02 | NUR ---
GPS OPENING NOTE: PATIENT WALKING IN THE HALLWAY IN THE UNIT ,A/OX3, NO ACUTE DISTRESS NOTED. NO SOB. NO C/O PAIN OR ANY DISCOMFORT PAIN AT THIS TIME. PT IS CALM, COOPERATIVE , QUIET, DEPRESSED MOOD PT DENIES SI/HI AT THIS TIME. VERBALIZATION OF FEELINGS ENCOURAGED. SAFETY PRECAUTIONS IMPLEMENTED. WILL CONTINUE TO MONITOR Q15MIN ROUNDS FOR SAFETY AND BEHAVIOR.
[2019-08-28] MEDS: LORAZEPAM 1 MG TABLET FOR AGITATION PO PRN (16:25)
--- NOTE | 2019-08-28 16:39 | NUR ---
GPS RN note: Anxiety patient requested anxiety medication ativan 1mg administered as ordered. Will continue to monitor Q15
[2019-08-28 20:15] VITALS: BP 120/84
--- NOTE | 2019-08-28 20:23 | NUR ---
GPS RN NOTES: OPENING RECEIVED PATIENT WALKING IN AND OUT OF HIS ROOM. PT GOES TO DAY ROOM AND WATCH TV. PT IS A/OX3, NO ACUTE DISTRESS NOTED. BREATHING EVEN AND UNLABORED. NO SOB. NO PAIN AT THIS TIME. PT IS CALM, COOPERATIVE WITH CARE, DEPRESSED, AND INTERACT W/ PEERS. PT DENIES SI/HI AT THIS TIME. ON INVESTIGATIONAL MEDICATION WITH NO ADVERSE REACTIONS NOTED. PT. REQUESTED FOR SMOKE BREAK AND CAME BACK AFTER 10MINS TO THE UNIT. VERBALIZATION OF FEELINGS ENCOURAGED.CALL MAR WITHIN REACH SAFETY PRECAUTIONS IMPLEMENTED. WILL CONTINUE TO MONITOR Q15MIN ROUNDS FOR SAFETY AND BEHAVIOR.
[2019-08-28] MEDS: [UNRECOGNIZED DRUG - OTHER] PO SCH (21:00)
[2019-08-28 21:58] VITALS: BP 111/66
[2019-08-28] MEDS: ZOLPIDEM TARTRATE 10 MG TABLET PO PRN (22:02)
--- NOTE | 2019-08-28 22:04 | NUR ---
GPS RN NOTE: INSOMNIA PATIENT C/O OF INSOMNIA AND REQUESTED AN AMBIEN. PTS VITALS WNL. NO SOB. NO RESP DISTRESS. BREATHING EVEN AND UNLABORED. ADMINISTERED AMBIEN 10MG PRN ORDERED. [id number] TO MONITOR.
--- NOTE | 2019-08-29 06:18 | NUR ---
GPS RN NOTES: CLOSING PT IS AWAKE WALKING IN AND OUT OF HIS ROOM. PT IS CALM, COOPERATIVE, AND FRIENDLY. NO SOB. NO RESP DISTRESS. BREATHING EVEN AND UNLABORED. NO PAIN AT THIS TIME. CONTINUE TO MONITOR
--- NOTE | 2019-08-29 07:41 | NUR ---
GPS RN note: Received patient AOX3. Patient reports sleeping well. 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 Patient is cooperative with treatment plan and medication administration. Denies SH/SI/HI. When asked about auditory and visual hallucinations patient stated, "yeah, everything remains the same". Will continue to monitor Q15.
[2019-08-29 08:00] VITALS: BP 122/70
[2019-08-29] MEDS: AMLODIPINE PO SCH (08:21)
[2019-08-29] MEDS: BENAZEPRIL PO SCH (08:21)
[2019-08-29 16:00] VITALS: BP 100/66
--- NOTE | 2019-08-29 19:45 | NUR ---
GPS RN NOTES: RECEIVED PATIENT WHO JUST CAME BACK FROM HIS SMOKE BREAK WITH ANOTHER PATIENT. HE APPEARS HAPPY ON THIS ASSESSMENT. NO COMPLAINS OF PAIN OR DISCOMFORT THIS TIME OF ASSESSMENT. REALITY ORIENTATION DONE. ADMINISTERED SCHEDULED INVESTIGATIONAL MEDICATIONS. SAFETY AND FALL PRECAUTIONS OBSERVED. ATTENDED TO ALL PATIENT'S NEEDS. WILL CONTINUE TO MONITOR WHILE INPATIENT.
[2019-08-29 21:04] VITALS: BP 117/61
[2019-08-29] MEDS: [UNRECOGNIZED DRUG - OTHER] PO SCH (21:24)
[2019-08-29] MEDS: ZOLPIDEM TARTRATE 10 MG TABLET PO PRN (22:16)
[2019-08-30] MEDS: BENAZEPRIL PO SCH (08:23)
[2019-08-30] MEDS: AMLODIPINE PO SCH (08:23)
--- NOTE | 2019-08-30 09:20 | NUR ---
RN NOTES RECEIVED PT FROM GPS FOR CLINICAL TRIAL, ARRIVED IN THE UNIT AT 0900. PT AMBULATORY, TOLERATING RA, WITH NO ACUTE RESPIRATORY DISTRESS NOTED. PT DENIES ANY PAIN OR DISCOMFORT AT THIS TIME. NO IV ACCESS. PT ORIENTED TO THE ROOM, KEP COMFORTABLE. CLAL LIGHT KEPT WITHIN REACH. PT'S BED IN LOWEST, LOCKED POSITION WITH SRX3. WILL CONTINUE PLAN OF CARE.
[2019-08-30 16:00] VITALS: BP 101/62
--- NOTE | 2019-08-30 18:32 | NUR ---
RN NOTES PT REMAINS IN BED, OCCASIONAL WALKING, TOLERATING RA, WITH NO ACUTE RESPIRATORY DISTRESS NOTED. PT DENIES ANY PAIN OR DISCOMFORT AT THIS TIME. NO IV ACCESS. PT ORIENTED TO THE ROOM, KEP COMFORTABLE. CALL LIGHT KEPT WITHIN REACH. ALL NEEDS AND CARE ATTENDED. PT'S BED IN LOWEST, LOCKED POSITION WITH SRX3. WILL ENDORSE TO INCOMING NIGHT NURSE FOR EMILY.
--- NOTE | 2019-08-30 19:49 | NUR ---
rn notes: pt went down to smoke
[2019-08-30 19:55] VITALS: BP 98/64
[2019-08-30 20:00] VITALS: BP 98/64
--- NOTE | 2019-08-30 20:10 | NUR ---
rn notes: pt back from smoking. back in the room.
--- NOTE | 2019-08-30 20:25 | NUR ---
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 met with pt in the room, pt is a/o x3 on ra, respirations even and unlabored. pt under clinical trial. denies any pain or discomfort at this time, requesting to have ambien at 2100 together with the investigational medication. pt has smoking break privileges. continent. denies any si, hi at this time. ambulatory, per report compliant with medications. reality orientation provided. safety precautions for fall engaged, will continue monitoring pt [id number] for safety and any changes in behavior.
[2019-08-30] MEDS: [UNRECOGNIZED DRUG - OTHER] PO SCH (21:13)
[2019-08-30] MEDS: ZOLPIDEM TARTRATE 10 MG TABLET PO PRN (21:13)
--- NOTE | 2019-08-30 21:13 | NUR ---
tavo rodien: ot requested for his sleeping medication. investigational medication and ambien taken by pt. able to swallow whole pill. rn stayed with the pt checking for any pocketing, none found. pt requested to have the room door closed.
--- NOTE | 2019-08-31 06:57 | NUR ---
end of shift report: pt remains a/o x3, denies any si/hi, had approximately 5hrs of sleep with the help of candice. pt ambulatory, continent, offered shower but pt stated he will take shower later in the day. vs remains stable, needs attended. safety precautions for fall remains engaged, call light in reach, will endorse to day rn for continuity of care.
[2019-08-31 08:00] VITALS: BP 105/64
--- NOTE | 2019-08-31 08:05 | NUR ---
MS RN OPENING NOTE RECEIVED PATIENT SITTING IN CHAIR, RESTING COMFORTABLY. PATIENT IN NO ACUTE DISTRESS. NO SOB NOTED. PATIENT BREATHING IS EVEN AND UNLABORED. SAFETY PRECAUTIONS IN PLACE. PATIENT BED IS LOCKED AND IN LOWEST POSITION. CALL LIGHT WITHIN REACH. WILL CONTINUE TO MONITOR.
[2019-08-31] MEDS: BENAZEPRIL PO SCH (08:40)
[2019-08-31] MEDS: AMLODIPINE PO SCH (08:40)
[2019-08-31 16:00] VITALS: BP 103/62
--- NOTE | 2019-08-31 18:45 | NUR ---
MS RN CLOSING NOTE PATIENT IN BED RESTING COMFORTABLY. PATIENT IN NO ACUTE DISTRESS. NO SOB NOTED. PATIENT BREATHING IS EVEN AND UNLABORED. PATIENT KEPT CLEAN, DRY AND COMFORTABLE THROUGHOUT SHIFT. SAFETY PRECAUTIONS IN PLACE. PATIENT BED IS LOCKED AND IN LOWEST POSITION. CALL LIGHT WITHIN REACH. WILL ENDORSE CARE TO PM SHIFT FOR EMILY.
[2019-08-31 20:00] VITALS: BP 119/95
--- NOTE | 2019-08-31 20:10 | NUR ---
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 met with pt in the room, pt is a/o x3 on ra, respirations even and unlabored. pt under clinical trial. denies any pain or discomfort at this time. pt has smoking break privileges. denies any si, hi at this time. ambulatory,compliant with medications. reality orientation provided. safety precautions for fall engaged, will continue monitoring pt [id number] for safety and any changes in behavior.
[2019-08-31 20:45] VITALS: BP 119/95
[2019-08-31] MEDS: [UNRECOGNIZED DRUG - OTHER] PO SCH (22:02)
[2019-08-31] MEDS: ZOLPIDEM TARTRATE 10 MG TABLET PO PRN (22:02)
--- NOTE | 2019-08-31 22:02 | NUR ---
prn ambien: pt requested for sleeping medication, prn ambien administered at this time.
--- NOTE | 2019-09-01 06:47 | NUR ---
End of shift report: Pt able to sleep for approximately 6hrs. pt remains a/o x3, denies any si/hi. Hold lorazepam at 2300 tonight per md order. No untoward behavior noted throughout the shift. Safety Precautions for fall remains engaged, will endorse to day rn for continuity of care.
--- NOTE | 2019-09-01 07:45 | NUR ---
MS RN OPENING NOTE RECEIVED PATIENT IN BED RESTING COMFORTABLY. PATIENT IN NO ACUTE DISTRESS. NO SOB NOTED. PATIENT BREATHING IS EVEN AND UNLABORED. SAFETY PRECAUTIONS IN PLACE. PATIENT BED IS LOCKED AND IN LOWEST POSITION. CALL LIGHT WITHIN REACH. WILL CONTINUE TO MONITOR.
[2019-09-01 08:07] VITALS: BP 116/90
[2019-09-01] MEDS: AMLODIPINE PO SCH (09:00)
[2019-09-01] MEDS: BENAZEPRIL PO SCH (09:00)
[2019-09-01] MEDS: LORAZEPAM 1 MG TABLET FOR AGITATION PO PRN (11:51)
--- NOTE | 2019-09-01 11:51 | NUR ---
MS RN NOTE PATIENT REQUESTING LORAZEPAM FOR ANXIETY. LORAZEPAM PRN GIVEN ORDERED. ORDERS BY DR. JOHNSON TO HOLD LORAZEPAM TONIGHT 09/01/19 AT 2300 AND THEN RESUME THE FOLLOWING DAY AFTER 1200.
[2019-09-01 16:00] VITALS: BP 110/79
--- NOTE | 2019-09-01 18:48 | NUR ---
MS RN CLOSING NOTE PATIENT IN BED RESTING COMFORTABLY. PATIENT IN NO ACUTE DISTRESS. NO SOB NOTED. PATIENT BREATHING IS EVEN AND UNLABORED. PATIENT KEPT CLEAN, DRY AND COMFORTABLE THROUGHOUT SHIFT. PATIENT COMPLIANT WITH PLAN OF CARE. DENIES SI. SAFETY PRECAUTIONS IN PLACE. PATIENT BED IS LOCKED AND IN LOWEST POSITION. CALL LIGHT WITHIN REACH. WILL ENDORSE CARE TO PM SHIFT FOR EMILY.
--- NOTE | 2019-09-01 19:00 | NUR ---
MS/RN OPENING NOTES: RECEIVED PATIENT IN BED RESTING COMFORTABLY. VERBALLY RESPONSIVE AND ABLE TO MAKE NEEDS KNOWN. A/OX4. AMBULATORY. PATIENT IN NO ACUTE DISTRESS. NO SOB NOTED. PATIENT BREATHING IS EVEN AND UNLABORED. SAFETY PRECAUTIONS IN PLACE. PATIENT BED IS LOCKED AND IN LOWEST POSITION. CALL LIGHT WITHIN REACH. WILL CONTINUE TO MONITOR ACCORDINGLY.
[2019-09-01 20:00] VITALS: BP 105/69
[2019-09-01 20:44] VITALS: BP 105/69
[2019-09-01] MEDS: [UNRECOGNIZED DRUG - OTHER] PO SCH (21:11)
[2019-09-01] MEDS: ZOLPIDEM TARTRATE 10 MG TABLET PO PRN (21:26)
--- NOTE | 2019-09-02 07:35 | NUR ---
RN NOTES RECEIVED PT FROM GPS FOR CLINICAL TRIAL, ARRIVED IN THE UNIT AT 0900. PT AMBULATORY, TOLERATING RA, WITH NO ACUTE RESPIRATORY DISTRESS NOTED. PT DENIES ANY PAIN OR DISCOMFORT AT THIS TIME. NO IV ACCESS. PT KEPT COMFORTABLE. CALL LIGHT KEPT WITHIN REACH. PT'S BED IN LOWEST, LOCKED POSITION WITH SRX3. WILL CONTINUE PLAN OF CARE.
[2019-09-02 08:00] VITALS: BP 104/73
[2019-09-02] MEDS: AMLODIPINE PO SCH (09:05)
[2019-09-02] MEDS: BENAZEPRIL PO SCH (09:05)
[2019-09-02] MEDS: LORAZEPAM 1 MG TABLET FOR AGITATION PO PRN (13:25)
--- NOTE | 2019-09-02 13:30 | NUR ---
MS RN NOTES PT REQUESTED FOR ATIVAN 1MG PRN, GIVEN TO PT ORDERED. WILL CONTINUE TO MONITOR.
[2019-09-02 16:00] VITALS: BP 103/63
--- NOTE | 2019-09-02 19:10 | NUR ---
RN MS CLINICAL TRIAL NOTES RECEIVED PATIENT IN ROOM IN BED AWAKE ALERT AND ORIENTED X4, RESPIRATIONS EVEN AND UNLABORED WITH EQUAL RISE AND FALL OF CHEST ,DENIES ANY PAIN OR DISCOMFORT, NO IV SITE PRESENT MD AWARE, NO SI OR HI PRESENT, REMAINS COMFORTABLE AT THIS TIME, ORIENTED TO STAFF AND CALL LIGHT AND KEPT WITHIN REACH, SAFETY PRECAUTIONS IN PLACE, LOW BED AND LOCKED, ALL NEEDS ATTENDED AT THIS TIME WILL CONTINUE TO MONITOR AND ATTEND TO NEEDS.FLUIDS PROVIDED.
--- NOTE | 2019-09-02 19:13 | NUR ---
RN NOTES PT REMAINS IN BED. AWAKE, AMBULATORY, TOLERATING RA, WITH NO ACUTE RESPIRATORY DISTRESS NOTED. PT DENIES ANY PAIN OR DISCOMFORT AT THIS TIME. NO IV ACCESS. PT KEPT COMFORTABLE. CALL LIGHT KEPT WITHIN REACH. PT'S BED IN LOWEST, LOCKED POSITION WITH SRX3. WILL ENDORSE TO INCOMING NIGHT NURSE FOR EMILY.
[2019-09-02 20:00] VITALS: BP 100/70
[2019-09-02 20:25] VITALS: BP 100/70
[2019-09-02] MEDS: [UNRECOGNIZED DRUG - OTHER] PO SCH (21:45)
--- NOTE | 2019-09-02 21:45 | NUR ---
rn ms notes patient requested for ambien to help him sleep. prn given as ordered will continue to monitor.
[2019-09-02] MEDS: ZOLPIDEM TARTRATE 10 MG TABLET PO PRN (21:46)
--- NOTE | 2019-09-03 06:56 | NUR ---
RN MS CLINICAL TRIAL NOTES PATIENT IN ROOM IN BED AWAKE ALERT AND ORIENTED X4, RESPIRATIONS EVEN AND UNLABORED WITH EQUAL RISE AND FALL OF CHEST, DENIES SI OR HI, CLOSE OBSERVATION DONE, REMAINS COMFORTABLE AT THIS TIME, CALL LIGHT AND KEPT WITHIN REACH, SAFETY PRECAUTIONS IN PLACE, LOW BED AND LOCKED, ALL NEEDS ATTENDED AT THIS TIME WILL CONTINUE TO MONITOR AND ATTEND TO NEEDS.FLUIDS PROVIDED. WILL ENDORSE TO NEXT SHIFT. SLEPT 6 HOURS. AMBIEN EFFECTIVE.
--- NOTE | 2019-09-03 07:39 | NUR ---
RN NOTES RECEIVED IN BED, AWAKE, A/O X4. TOLERATING RA, WITH NO ACUTE RESPIRATORY DISTRESS NOTED. PT DENIES ANY PAIN OR DISCOMFORT AT THIS TIME. NO IV ACCESS. PT KEPT COMFORTABLE. CALL LIGHT KEPT WITHIN REACH. PT'S BED IN LOWEST, LOCKED POSITION WITH SRX3. WILL CONTINUE PLAN OF CARE.
[2019-09-03 08:00] VITALS: BP 102/62
[2019-09-03] MEDS: BENAZEPRIL PO SCH (08:56)
[2019-09-03] MEDS: AMLODIPINE PO SCH (08:56)
[2019-09-03 16:17] VITALS: BP 99/65
--- NOTE | 2019-09-03 18:55 | NUR ---
RN NOTES PT REMAINS IN BED. AWAKE, AMBULATORY, TOLERATING RA, WITH NO ACUTE RESPIRATORY DISTRESS NOTED. PT DENIES ANY PAIN OR DISCOMFORT AT THIS TIME. NO IV ACCESS. PT KEPT COMFORTABLE. ALL NEEDS AND CARE ATTENDED. CALL LIGHT KEPT WITHIN REACH. PT'S BED IN LOWEST, LOCKED POSITION WITH SRX3. WILL ENDORSE TO INCOMING NIGHT NURSE FOR EMILY.
--- NOTE | 2019-09-03 19:20 | NUR ---
RN opening notes Received Pt in the room sitting in bed comfortably. Pt is alert and orientedX3, calm, cooperative and meds compliant. Respiration is normal. No SOB. No s/s of distress noted. No IV access. Pt denies SI/HI at this time. Reality orientation provided. Safety precautions is maintained. Will continue to monitor Q 15 mins checks for mood, safety and behavior.
[2019-09-03 20:00] VITALS: BP 98/65
[2019-09-03] MEDS: [UNRECOGNIZED DRUG - OTHER] PO SCH (21:23)
[2019-09-03] MEDS: ZOLPIDEM TARTRATE 10 MG TABLET PO PRN (21:27)
--- NOTE | 2019-09-03 21:29 | NUR ---
RN notes Pt is having trouble sleeping and requesting sleeping pill. Administered ambien 10mg/1 tab as ordered for sleeping. Safety precautions is maintained. Will continue to monitor.
--- NOTE | 2019-09-04 06:50 | NUR ---
RN closing notes Pt is resting in bed comfortably. Pt is alert and orientedX3, calm, cooperative and meds compliant. Respiration is normal. No SOB. No s/s of distress noted. No IV access. Pt denies SI/HI at this time. Reality orientation provided. Kept Pt clean, dry and comfortable. All needs met and attended. Safety precautions is maintained. Will endorse to morning nurse for EMILY.
--- NOTE | 2019-09-04 07:51 | NUR ---
MS RN OPENING NOTE RECEIVED PATIENT IN BED RESTING COMFORTABLY. PATIENT IN NO ACUTE DISTRESS. NO SOB NOTED. PATIENT BREATHING IS EVEN AND UNLABORED. PATIENT HOB IS ELEVATED. SAFETY PRECAUTIONS IN PLACE. PATIENT BED IS LOCKED AND IN LOWEST POSITION. CALL LIGHT WITHIN REACH. WILL CONTINUE TO MONITOR.
[2019-09-04 08:00] VITALS: BP 113/64
[2019-09-04] MEDS: AMLODIPINE PO SCH (08:36)
[2019-09-04] MEDS: BENAZEPRIL PO SCH (08:36)
[2019-09-04 18:46] VITALS: BP 121/72
--- NOTE | 2019-09-04 19:30 | NUR ---
ms rn opening note received patient in bed. a/ox4. tolerating room air. respirations are even and unlabored. no s/s sob noted. no c/o pain at this time. in no apparent distress. no iv access noted. bed is low and locked, hob flat, side rials down. call light within reach. will continue to monitor.
[2019-09-04 20:00] VITALS: BP 109/74
[2019-09-04] MEDS: LORAZEPAM 1 MG TABLET FOR AGITATION PO PRN (21:05)
--- NOTE | 2019-09-04 21:06 | NUR ---
ms rn note administered prn ativan 1mg per patient request for feeling anxious. will continue to monitor.
[2019-09-04] MEDS: [UNRECOGNIZED DRUG - OTHER] PO SCH (22:13)
[2019-09-04] MEDS: ZOLPIDEM TARTRATE 10 MG TABLET PO PRN (22:20)
--- NOTE | 2019-09-05 07:39 | NUR ---
ms rn closing note patient in bed. a/ox4. tolerating room air. respirations are even and unlabored. no sob noted. no c/o pain t/o shift. no distress. no iv access. bed remains low and locked, hob flat, side rials down. call light within reach. will endorse to next shift.
[2019-09-05 08:00] VITALS: BP 145/85
[2019-09-05] MEDS: AMLODIPINE PO SCH (08:32)
[2019-09-05] MEDS: BENAZEPRIL PO SCH (08:32)
--- NOTE | 2019-09-05 18:47 | NUR ---
MS RN NOTE PATIENT REQUESTING LORAZEPAM FOR ANXIETY. LORAZEPAM PRN GIVEN ORDERED.
[2019-09-05] MEDS: LORAZEPAM 1 MG TABLET FOR AGITATION PO PRN (18:48)
[2019-09-05 18:50] VITALS: BP 100/65
--- NOTE | 2019-09-05 19:36 | NUR ---
MS/RN OPENING NOTES: RECEIVED PATIENT IN BED RESTING COMFORTABLY. VERBALLY RESPONSIVE AND ABLE TO MAKE NEEDS KNOWN. A/OX4. AMBULATORY. IN NO ACUTE DISTRESS. NO SOB NOTED. PATIENT BREATHING IS EVEN AND UNLABORED. DENIES SI. SAFETY PRECAUTIONS IN PLACE. PATIENT BED IS LOCKED AND IN LOWEST POSITION. CALL LIGHT WITHIN REACH. WILL CONTINUE TO MONITOR ACCORDINGLY.
[2019-09-05 20:00] VITALS: BP 108/70
[2019-09-05] MEDS: [UNRECOGNIZED DRUG - OTHER] PO SCH (21:08)
[2019-09-05] MEDS: ZOLPIDEM TARTRATE 10 MG TABLET PO PRN (21:34)
--- NOTE | 2019-09-06 07:22 | NUR ---
MS/RN CLOSING NOTES: PATIENT REMAINS IN BED RESTING COMFORTABLY. PATIENT IN NO ACUTE DISTRESS. NO SOB NOTED. PATIENT BREATHING IS EVEN AND UNLABORED. PATIENT KEPT CLEAN, DRY AND COMFORTABLE THROUGHOUT SHIFT. PATIENT COMPLIANT WITH PLAN OF CARE. DENIES SI. SAFETY PRECAUTIONS IN PLACE. PATIENT BED IS LOCKED AND IN LOWEST POSITION. CALL LIGHT WITHIN REACH. WILL ENDORSE CARE TO AM SHIFT FOR EMILY.
--- NOTE | 2019-09-06 07:30 | NUR ---
RN OPENING NOTES RECEIVED PATIENT IN BED RESTING. NOT IN ANY FORM OF DISTRESS. NO SOB. DENIED PAIN OR DISCOMFORT AT THIS TIME. IV ACCES INTACT AND PATENT. SAFETY MEASURES IN PLACE. BED IN LOW/LOCKED POSITION. SIDERAILS UPX2,CALL LIGHT IN REACH. WILL MONITOR ACCORDINGLY.
[2019-09-06 08:00] VITALS: BP 110/68
[2019-09-06] MEDS: BENAZEPRIL PO SCH (08:39)
[2019-09-06] MEDS: AMLODIPINE PO SCH (08:39)
[2019-09-06 16:00] VITALS: BP 99/57
[2019-09-06] MEDS: LORAZEPAM 1 MG TABLET FOR AGITATION PO PRN (16:46)
--- NOTE | 2019-09-06 16:47 | NUR ---
rn notes pt asked for ativan for anxiety. ativan 1mg po given as ordered.
--- NOTE | 2019-09-06 18:36 | NUR ---
RN CLOSING NOTES PATIENT IN STABLE CONDITION. ALL NEEDS ATTENDED AND PROVIDED. ALL DUE MEDS GIVEN ORDERED. ASSISTED WITH ADLS. KEPT PATIENT AFE AND COMFORTABLE. BED IN LOW/LOCKED POSITION. SIDERAILS UPX2,CALL LIGHT IN REACH. WILL ENDORSED TO NIGHT RN ACCORDINGLY
[2019-09-06 20:20] VITALS: BP 123/77
[2019-09-06] MEDS: [UNRECOGNIZED DRUG - OTHER] PO SCH (21:14)
[2019-09-06] MEDS: ZOLPIDEM TARTRATE 10 MG TABLET PO PRN (21:38)
--- NOTE | 2019-09-07 07:25 | NUR ---
MS RN NOTES RECEIVED PATIENT IN BED, ALERT AND ORIENTED X4 WATCHING TV. NO SOB. DENIES ANY C/O PAIN NOR DISCOMFORT AT THIS TIME. ON CLINICAL TRIALS WITHOUT S/S OF COMPLICATIONS OBSERVED. BED IN LOWEST POSITION, LOCKED. ABLE TO VERBALIZE NEEDS. CALL LIGHT WITHIN REACH.
[2019-09-07 08:00] VITALS: BP 115/80
[2019-09-07] MEDS: AMLODIPINE PO SCH (08:27)
[2019-09-07] MEDS: BENAZEPRIL PO SCH (08:27)
[2019-09-07] MEDS: LORAZEPAM 1 MG TABLET FOR AGITATION PO PRN (14:27)
[2019-09-07 18:39] VITALS: BP 110/70
--- NOTE | 2019-09-07 18:43 | NUR ---
MS RN NOTES PATIENT RESTING COMFORTABLY IN BED WATCHING TV. NO S/S OF RESPIRATORY DISTRESS. DENIES ANY C/O PAIN NOR DISCOMFORT AT THIS TIME. ON CLINICAL TRIALS WITHOUT S/S OF COMPLICATIONS OBSERVED. DENIES ANY SUICIDAL IDEATION. DENIES ANY C/O HALLUCINATIONS/DELUSIONS. BED IN LOWEST POSITION, LOCKED. ABLE TO VERBALIZE NEEDS. CALL LIGHT WITHIN REACH. IN NO APPARENT DISTRESS.
[2019-09-07 19:48] VITALS: BP 127/83
[2019-09-07 20:11] VITALS: BP 127/83
[2019-09-07] MEDS: [UNRECOGNIZED DRUG - OTHER] PO SCH (21:04)
[2019-09-07] MEDS: ZOLPIDEM TARTRATE 10 MG TABLET PO PRN (21:05)
[2019-09-08 08:00] VITALS: BP 97/56
--- NOTE | 2019-09-08 08:00 | NUR ---
RN NOTES Received patient in the bed a/ox3, no acute respiratory distress, v/s taken bp -97/56, p-87, held bp medication. Patient refused pain, but state hearing voiced, and voices telling him , watch out for problems. Patient refused si/hi at this time, stable, tolerated breakfast well, smoker, ambulatory self care. call light within to reach, continued monitoring.
[2019-09-08] MEDS: AMLODIPINE PO SCH (08:12)
[2019-09-08] MEDS: BENAZEPRIL PO SCH (08:12)
--- NOTE | 2019-09-08 18:00 | NUR ---
RN NOTES PATIENT SMOKER , STILL STATE HEARING VOICES, BUT REFUSED SI/HI, REDIRECTABLE,TOLERATED DINNER WELL. AMBULATORY SELF CARE, CALL LIGHT WITHIN TO REACH. SAFETY PRECAUTION MAINTAINED ALL THE TIME, ENDORSED ONCOMING NURSE FOLLOW PLAN OF CARE.
--- NOTE | 2019-09-08 19:15 | NUR ---
RN MS CLINICAL TRAIL NOTES RECEIVED PATIENT IN BED AWAKE ALERT AND ORIENTED X4, ABLE TO MAKE NEEDS KNOWN, RESPIRATIONS EVEN AND UNLABORED WITH EQUAL RISE AND FALL OF CHEST, DENIES ANY PAIN OR DISCOMFORT AT THIS TIME, DENIES SI/HI, WILL CONTINUE TO MONITOR, PATIENT IS REDIRECTABLE, AMBULATORY STEADY, ORIENTED TO STAFF AND CALL LIGHT AND KEPT WITHIN REACH, ALL NEEDS ATTENDED AT THIS TIME, WILL CONTINUE TO MONITOR.
[2019-09-08 20:00] VITALS: BP 96/64
[2019-09-08 20:21] VITALS: BP 96/64
[2019-09-08] MEDS: [UNRECOGNIZED DRUG - OTHER] PO SCH (21:04)
[2019-09-08] MEDS: ZOLPIDEM TARTRATE 10 MG TABLET PO PRN (21:04)
--- NOTE | 2019-09-08 21:04 | NUR ---
rn ms notes patient requested for ambien to help him sleep. ambien prn given as ordered. will continue to monitor for effectiveness.
--- NOTE | 2019-09-09 07:13 | NUR ---
RN MS CLINICAL TRAIL NOTES PATIENT IN BED SLEEPING EASILY AROUSABLE ALERT AND ORIENTED X4, ABLE TO MAKE NEEDS KNOWN, RESPIRATIONS EVEN AND UNLABORED WITH EQUAL RISE AND FALL OF CHEST, DENIES ANY PAIN OR DISCOMFORT AT THIS TIME, DENIES SI/HI,PATIENT IS REDIRECTABLE, AMBULATORY STEADY, CALL LIGHT KEPT WITHIN REACH, ALL NEEDS ATTENDED AT THIS TIME, WILL CONTINUE TO MONITOR AND ENDORSE TO NEXT SHIFT. DENIES ANY AUDITORY OR VISUAL HALLUCINATIONS.
--- NOTE | 2019-09-09 07:47 | NUR ---
MS RN OPENING NOTES Received Patient resting in bed. A/O x 4. VS stable with no acute distress. Breathing even and unlabored on room air with no respiratory distress. Denies pain. No signs and symptoms of pain. No IV access, MD aware. Safety precautions in place. Bed locked and set to lowest position with side rails x 2 up. All needs rendered at this time. Call light within reach. Will continue to monitor.
[2019-09-09 08:00] VITALS: BP 113/75
[2019-09-09] MEDS: AMLODIPINE PO SCH (08:29)
[2019-09-09] MEDS: BENAZEPRIL PO SCH (08:29)
[2019-09-09] MEDS ORDERED: LORAZEPAM 1 MG TABLET FOR AGITATION PO PRN (12:00)
--- NOTE | 2019-09-09 15:18 | NUR ---
MS RN NOTES Per Patients request, administered Ativan 1mg PO at this time. Patient in stable condition. Will continue to monitor.
[2019-09-09 16:00] VITALS: BP 127/80
--- NOTE | 2019-09-09 18:20 | NUR ---
MS RN CLOSING NOTES Patient resting in bed. A/O x 4. VS stable with no acute distress. Breathing even and unlabored on room air with no respiratory distress. Denies pain. No signs and symptoms of pain. No IV access, MD aware. Safety precautions in place. Bed locked and set to lowest position with side rails x 2 up. All needs rendered at this time. Call light within reach. Will endorse plan of care to oncoming shift.
--- NOTE | 2019-09-09 19:05 | NUR ---
RN MS CLINICAL TRIAL NOTES PATIENT SITTING IN BED AWAKE ALERT AND ORIENTED X4, ABLE TO MAKE NEEDS KNOWN, RESPIRATIONS EVEN AND UNLABORED WITH EQUAL RISE AND FALL OF CHEST, DENIES ANY PAIN OR DISCOMFORT AT THIS TIME, DENIES SI/HI,PATIENT IS REDIRECTABLE, AMBULATORY STEADY, CALL LIGHT KEPT WITHIN REACH, ALL NEEDS ATTENDED AT THIS TIME, WILL CONTINUE TO MONITOR CLOSELY, DENIES ANY AUDITORY OR VISUAL HALLUCINATIONS AT THIS TIME.
[2019-09-09 20:00] VITALS: BP 127/87
[2019-09-09 20:32] VITALS: BP 127/87
[2019-09-09] MEDS: [UNRECOGNIZED DRUG - OTHER] PO SCH (21:18)
[2019-09-09] MEDS: ZOLPIDEM TARTRATE 10 MG TABLET PO PRN (21:18)
--- NOTE | 2019-09-09 21:18 | NUR ---
rn ms notes patient requested for candice vo. given as ordered, lights dimmed, will continue to monitor for effectiveness.
--- NOTE | 2019-09-10 06:32 | NUR ---
RN MS CLINICAL TRIAL NOTES PATIENT IN BED SLEEPING EASILY AROUSABLE ALERT AND ORIENTED X4, ABLE TO MAKE NEEDS KNOWN, RESPIRATIONS EVEN AND UNLABORED WITH EQUAL RISE AND FALL OF CHEST, DENIES ANY PAIN OR DISCOMFORT AT THIS TIME, DENIES SI/HI,PATIENT IS REDIRECTABLE, AMBULATORY STEADY, CALL LIGHT KEPT WITHIN REACH, ALL NEEDS ATTENDED AT THIS TIME, WILL CONTINUE TO MONITOR AND ENDORSE TO NEXT SHIFT. DENIES ANY AUDITORY OR VISUAL HALLUCINATIONS.
[2019-09-10 08:00] VITALS: BP 117/91
[2019-09-10] MEDS: BENAZEPRIL PO SCH (08:24)
[2019-09-10] MEDS: AMLODIPINE PO SCH (08:24)
[2019-09-10 16:00] VITALS: BP 129/97
--- NOTE | 2019-09-10 19:40 | NUR ---
MS RN NOTE: PATIENT RESTING IN BED, NO ACUTE DISTRESS NOTED. BREATHING EVEN AND UNLABORED, NO SOB NOTED. PATIENT CALM AND COOPERATIVE AT THIS TIME. BED LOCKED AND IN LOWEST POSITION, CALL LIGHT IN REACH. WILL CONTINUE TO MONITOR.
[2019-09-10 20:09] VITALS: BP 127/90
[2019-09-10] MEDS: ZOLPIDEM TARTRATE 10 MG TABLET PO PRN (21:09)
[2019-09-10] MEDS: [UNRECOGNIZED DRUG - OTHER] PO SCH (21:09)
--- NOTE | 2019-09-10 21:15 | NUR ---
MS RN NOTE: PATIENT REQUESTING FOR SLEEPING MEDICATION, AMBIEN 10MG 1 TAB ORAL GIVEN PER MD ORDER. PATIENT REQUESTING TO RECEIVE INVESTIGATION MEDICATION ALSO AT THIS TIME SO THAT PATIENT CAN GO TO SLEEP ALREADY. WILL CONTINUE TO MONITOR.
--- NOTE | 2019-09-11 06:30 | NUR ---
MS RN NOTE: PATIENT RESTING IN BED, NO ACUTE DISTRESS NOTED. BREATHING EVEN AND UNLABORED, NO SOB NOTED. PATIENT CALM AND COOPERATIVE AT THIS TIME. BED LOCKED AND IN LOWEST POSITION, CALL LIGHT IN REACH. WILL ENDORSE TO DAY NURSE TO CONTINUE WITH PLAN OF CARE.
[2019-09-11 08:00] VITALS: BP 100/64
--- NOTE | 2019-09-11 08:00 | NUR ---
MS RN OPENING NOTES Received Patient resting in bed. A/O x 4. VS stable with no acute distress. Breathing even and unlabored on room air with no respiratory distress. Denies pain. No signs and symptoms of pain. No IV access, MD aware. Safety precautions in place. Bed locked and set to lowest position with side rails x 2 up. No episode of anxiety. Cooperative with staff. Call light within reach. Will continue to monitor.
[2019-09-11 08:25] VITALS: BP 100/64
[2019-09-11] MEDS: AMLODIPINE PO SCH (09:00)
[2019-09-11] MEDS: BENAZEPRIL PO SCH (09:00)
--- NOTE | 2019-09-11 10:48 | NUR ---
held pt's AMLODIPINE/BENAZEPRIL DUE TO LOW BP 100/64
[2019-09-11 16:00] VITALS: BP 97/51
--- NOTE | 2019-09-11 17:24 | NUR ---
PT WILL BE MOVED TO ROOM 315-2 AFTER DINNER. PT MADE AWARE AND WILL BRING ALL HIS BELONGINGS WELL.
--- NOTE | 2019-09-11 19:30 | NUR ---
MS RN NOTES (CLINICAL TRIAL) RECEIVED OUT OF THE ROOM GOING DOWN TO SMOKE.AMBULATE WITH STEADY GAIT.ABLE TO VERBALIZED NEEDS.NO SALINE LOCK PER BEHAVIORAL PROTOCOL.LABS WITH IN NORMAL LIMITS.CALL LIGHT IN REACH,NEEDS ANTICIPATED.
[2019-09-11 20:00] VITALS: BP 111/69
[2019-09-11] MEDS: [UNRECOGNIZED DRUG - OTHER] PO SCH (21:40)
--- NOTE | 2019-09-11 21:40 | NUR ---
MS RN NOTES DUE INVESTIGATIONAL DRUGS
[2019-09-11] MEDS: ZOLPIDEM TARTRATE 10 MG TABLET PO PRN (21:41)
--- NOTE | 2019-09-11 21:41 | NUR ---
MS RN NOTES C/O INSOMNIA,AMBIEN 10MG,1TAB PO GIVEN PER PATIENT REQUEST.MONITOR HOUR OF SLEEP
[2019-09-12] VITALS (7 sets, daily range): BP systolic 104–114; BP diastolic 64–69
--- NOTE | 2019-09-12 06:00 | NUR ---
MS RN NOTES WENT DOWN TO SMOKE
--- NOTE | 2019-09-12 06:25 | NUR ---
MS RN NOTES IN ROOM RIGHT NOW,CALM,FOLLOW DIRECTIONS.DENIES DISCOMFORTS NOR ANXIETY.SLEPT 6-7 HOURS AT NIGHT.WILL CONTINUE TO MONITOR BEHAVIOR AND MANAGE ACCORDINGLY.WILL ENDORSE YO DAY NURSE FOR EMILY.
--- NOTE | 2019-09-12 07:30 | NUR ---
RN OPENING NOTE Patient is resting in bed, A/O x4, showing no signs of acute distress or SOB, stable on RA. Patient has no IV line. Patient is ambulatory with BRP and smoking privileges per MD. Patient is on clinical trial with Dr. Atkins. Will continue with plan of care.
[2019-09-12] MEDS: BENAZEPRIL PO SCH ×2 (08:35→09:36)
[2019-09-12] MEDS: AMLODIPINE PO SCH ×2 (08:35→09:36)
--- NOTE | 2019-09-12 09:37 | NUR ---
RN NOTE Patient insists to take amlodipine benazepril. He states, "I haven't taken it in 2 days, I want to take it today." BP is 114/64 HR 64. Patient is stable.
--- NOTE | 2019-09-12 18:57 | NUR ---
RN CLOSING NOTE Patient is resting in bed, A/O x4, showing no signs of acute distress or SOB, stable on RA. Patient has no IV line. Patient is ambulatory with BRP and smoking privileges per MD. Patient is on clinical trial with Dr. Atkins. All patient needs met, all due medications given, patient in independent with care and has BRP. Will endorse to security shift manager.
--- NOTE | 2019-09-12 19:30 | NUR ---
MS RN NOTES RECEIVED ON BED WATCHING TV PROGRAM,NO SIGNS OF ANY DISTRESS,ABLE TO VERBALIZED NEEDS,ON CLINICAL TRIAL,CALL LIGHT IN REACH,NEEDS ANTICIPATED.
--- NOTE | 2019-09-12 19:40 | NUR ---
MS RN NOTES WENT DOWN TO SMOKE
[2019-09-12] MEDS: [UNRECOGNIZED DRUG - OTHER] PO SCH (21:25)
[2019-09-12] MEDS: ZOLPIDEM TARTRATE 10 MG TABLET PO PRN (21:27)
--- NOTE | 2019-09-12 21:27 | NUR ---
MS RN NOTES MEDICATED WITH AMBIEN 10MG,1 TAB PO FOR SLEEP,PATIENT REQUESTED IT EARLY.
--- NOTE | 2019-09-13 01:00 | NUR ---
MS RN NOTES SLEEPING,KEPT ROOM WARM PER PATIENT REQUEST.
--- NOTE | 2019-09-13 06:00 | NUR ---
MS RN NOTES AWAKE,WENT DOWN TO SMOKE.AMBULATE WITH STEADY GAIT.SLEEP 8 HOURS AT NIGHT.CALM,FOLLOW INSTRUCTIONS.CALL LIGHT IN REACH,NEEDS ATTENDED.
[2019-09-13 08:00] VITALS: BP 118/78
[2019-09-13] MEDS: BENAZEPRIL PO SCH (09:13)
[2019-09-13] MEDS: AMLODIPINE PO SCH (09:13)
--- NOTE | 2019-09-13 09:47 | NUR ---
RN MED/SURG OPENING NOTES Received patient alert, oriented x4. Respiration is even and easy, with no shortness of breath. Patient is able to verbalized his needs. Will continue to monitor for safety and comfort.
[2019-09-13 16:00] VITALS: BP 115/70
--- NOTE | 2019-09-13 18:21 | NUR ---
BOWLING BALL WEIGHER AND PACKER CLOSING NOTES Patient remains alert, oriented x 4. All due medications given as ordered. Respiration is even and easy, with no shortness of breath. Able to ambulate independently with good steady gait. Independent with bowel and bladder habits. Remains in stable condition.
--- NOTE | 2019-09-13 19:30 | NUR ---
MS/RN OPENING NOTES RECEIVED PATIENT RESTING IN BED WATCHING TV. PATIENT IS ALERT AND ORIENTED X 4. PATIENT STATES NO PAIN AT THIS TIME. NO SIGNS OF SOB OR RESPIRATORY DISTRESS NOTED. PATIENT IS ON ROOM AIR TOLERATING WELL. NO LABORED BREATHING NOTED. PATIENT IS ABLE TO AMBULATE TO RESTROOM WITH STABLE GAIT. SAFETY MEASURES ARE IN PLACE, BED IS LOCKED AND PLACED IN THE LOWEST POSITION. CALL LIGHT IS WITHIN REACH. WILL CONTINUE TO MONITOR PATIENT THROUGH OUT SHIFT.
--- NOTE | 2019-09-13 19:50 | NUR ---
MS/RN NOTES PATIENT WENT DOWN TO SMOKE. GAIT IS STABLE. NO SIGNS OF DISTRESS NOTED.
[2019-09-13 20:00] VITALS: BP 110/64
[2019-09-13] MEDS: [UNRECOGNIZED DRUG - OTHER] PO SCH (21:15)
[2019-09-13] MEDS: ZOLPIDEM TARTRATE 10 MG TABLET PO PRN (21:16)
--- NOTE | 2019-09-13 21:20 | NUR ---
MS/RN NOTES PATIENT REQUESTED SLEEPING AID FOR THE NIGHT. AMBIEN 10MG PO WAS GIVEN. PATIENT HAS NO SIGNS OF DISTRESS, V/S WITHIN NORMAL LIMITS. WILL CONTINUE TO MONITOR.
--- NOTE | 2019-09-14 06:40 | NUR ---
MS/RN CLOSING NOTES PATIENT RESTING IN BED WATCHING TV. PATIENT IS ALERT AND ORIENTED X 4. PATIENT STATES NO PAIN AT THIS TIME. NO SIGNS OF SOB OR RESPIRATORY DISTRESS NOTED. PATIENT IS ON ROOM AIR TOLERATING WELL. NO LABORED BREATHING NOTED. PATIENT IS ABLE TO AMBULATE TO RESTROOM WITH STABLE GAIT AND GOES DOWN STAIRS TO SMOKE DURING SHIFT. ALL PATIENTS NEEDS HAVE BEEN MET DURING SHIFT. SAFETY MEASURES ARE IN PLACE, BED IS LOCKED AND PLACED IN THE LOWEST POSITION. CALL LIGHT IS WITHIN REACH. WILL ENDORSE CARE TO DAY SHIFT.
--- NOTE | 2019-09-14 07:59 | NUR ---
MS KAREN OPEN NOTES PATIENT IS A/O X 4 ALERT AND ORIENTED. WITH NO SIGNS OF DISTRESS IN ROOM AIR. DENIES ANY PAIN AND NO DISCOMFORT AT THIS MOMENT. AMBULATORY WITH A STABLE GAIT. GETS TO GO DOWNSTAIRS TO SMOKE. SAFETY MEASURES ARE BEING APPLIED, BED IS IN LOW POSITION AND LOCKED, SIDE RAILS UP X 2 FOR SAFETY. CALL LIGHT WITHIN REACH. WILL CONTINUE TO MONITOR.
[2019-09-14 08:00] VITALS: BP 92/62
[2019-09-14] MEDS: BENAZEPRIL PO SCH (09:00)
[2019-09-14] MEDS: AMLODIPINE PO SCH (09:00)
--- NOTE | 2019-09-14 09:31 | NUR ---
BLOOD PRESSURE MEDICATION WAS HELD D/T LOW BLOOD PRESSURE. BP 96/59 HR 62. WILL CONTINUE TO MONITOR.
[2019-09-14 16:00] VITALS: BP 117/57
--- NOTE | 2019-09-14 18:25 | NUR ---
MS RN CLOSED NOTES PATIENT IS A/O X 4 ALERT AND ORIENTED. WITH NO SIGNS OF DISTRESS IN ROOM AIR. DENIES ANY PAIN AND NO DISCOMFORT AT THIS MOMENT. AMBULATORY WITH A STABLE GAIT. GETS TO GO DOWNSTAIRS TO SMOKE. PATIENT REMAINED STABLE THROUGH OUT SHIFT. PATIENT KEPT CLEAN AND DRY. ALL NEEDS, CARE, TREATMENT AND MEDICATIONS ADMINISTERED ANTICIPATED PER ORDER. SAFETY MEASURES ARE BEING APPLIED, BED IS IN LOW POSITION AND LOCKED, SIDE RAILS UP X 2 FOR SAFETY. CALL LIGHT WITHIN REACH. WILL ENDORSE TO THE NEXT DEICER FINISHER.
--- NOTE | 2019-09-14 19:02 | NUR ---
MS RN OPENING NOTES: RECEIVED PATIENT IN BED, AWAKE, A/O X4. NO SOB NOTED. NO COMPLAIN OF PAIN. CALL LIGHT WITHIN REACH. BED IN LOWEST AND LOCKED POSITION.
[2019-09-14 20:00] VITALS: BP 96/63
[2019-09-14] MEDS: ZOLPIDEM TARTRATE 10 MG TABLET PO PRN (21:24)
[2019-09-14] MEDS: [UNRECOGNIZED DRUG - OTHER] PO SCH (21:25)
--- NOTE | 2019-09-15 06:00 | NUR ---
MS RN CLOSING NOTES: PATIENT IN BED, AWAKE A/O X4. NO SOB NOTED. NO COMPLAIN OF PAIN. RESTED THROUGHOUT THE NIGHT. AMBULATORY. CALL LIGHT WITHIN REACH. BED IN LOWEST AND LOCKED POSITION.
[2019-09-15 08:00] VITALS: BP 103/66
--- NOTE | 2019-09-15 08:00 | NUR ---
RN NOTES RECEIVED PATIENT IN THE ROOM A/O X3, NO ACUTE RESPIRATORY DISTRESS. PATIENT ON CLINICAL TRIAL, WAS STATE HEARING VOICES , BUT NOT HARMFUL. PATIENT SMOKER, AMBULATORY SELF CARE. V/S WNL, HELD BP MEDICATION. CALL LIGHT WITHIN TO REACH. SAFETY PRECAUTION MAINTAINED ALL THE TI,ME.
[2019-09-15] MEDS: AMLODIPINE PO SCH (08:30)
[2019-09-15] MEDS: BENAZEPRIL PO SCH (08:30)
[2019-09-15 16:00] VITALS: BP 103/74
--- NOTE | 2019-09-15 18:00 | NUR ---
RN NOTES PATIENT IN THE ROOM , TOLERATED DINNER WELL, NO ACUTE DISTRESS, DENIED SI/HI AT THIS TIME, REDIRECTABLE. CALL LIGHT WITHIN TO REACH. ENDORSED ONCOMING NURSE FOLLOW PLAN OF CARE.
--- NOTE | 2019-09-15 19:30 | NUR ---
ms rn opening note received patient in bed. a/ox4. tolerating room air. in no apparent distress. no iv access noted. bed is low and locked, hob flat side rials down. call light within reach. will continue to monitor.
[2019-09-15 20:00] VITALS: BP 107/57
[2019-09-15] MEDS: [UNRECOGNIZED DRUG - OTHER] PO SCH (21:29)
[2019-09-15] MEDS: ZOLPIDEM TARTRATE 10 MG TABLET PO PRN (21:30)
--- NOTE | 2019-09-15 21:33 | NUR ---
ms rn note administered prn ambien per patient request for sleep. will continue to monitor.
--- NOTE | 2019-09-16 07:15 | NUR ---
RECEIVED PATIENT IN BED, AWAKE, A/O X4. NO SOB NOTED. NO COMPLAIN OF PAIN. CALL LIGHT WITHIN REACH. BED IN LOWEST AND LOCKED POSITION.WILL CONTINUE TO MONITOR
--- NOTE | 2019-09-16 07:55 | NUR ---
ms rn closing note patient in bed. a/ox4. tolerating room air. no distress. bed remains low and locked, hob flat side rials down. call light within reach. will endorse to next shift.
[2019-09-16 08:00] VITALS: BP_SYST 118; BP_SYST 132; BP_DIAS 51; BP_DIAS 69
[2019-09-16] MEDS: BENAZEPRIL PO SCH (09:16)
[2019-09-16] MEDS: AMLODIPINE PO SCH (09:16)
[2019-09-16] MEDS ORDERED: LORAZEPAM 1 MG TABLET FOR AGITATION PO PRN (12:00)
[2019-09-16 16:00] VITALS: BP 122/78
--- NOTE | 2019-09-16 19:23 | NUR ---
PATIENT IN BED, AWAKE A/O X4. NO SOB NOTED. NO COMPLAIN OF PAIN. RESTED THROUGHOUT THE NIGHT. AMBULATORY. CALL LIGHT WITHIN REACH. BED IN LOWEST AND LOCKED POSITION.
[2019-09-16 20:00] VITALS: BP 115/74
[2019-09-16] MEDS: [UNRECOGNIZED DRUG - OTHER] PO SCH (21:33)
[2019-09-16] MEDS: ZOLPIDEM TARTRATE 10 MG TABLET PO PRN (23:28)
[2019-09-17 08:00] VITALS: BP 120/80
[2019-09-17] MEDS: AMLODIPINE PO SCH (09:43)
[2019-09-17] MEDS: BENAZEPRIL PO SCH (09:43)
[2019-09-17 16:00] VITALS: BP 132/90
--- NOTE | 2019-09-17 19:10 | NUR ---
RN opening notes Received Pt in the room sitting in bed comfortably eating dinner. Pt is a clinical trial. Pt is alert and orientedX4, calm, cooperative and meds compliant. Respiration is normal. No SOB. No s/s of distress noted. No IV access. Pt denies SI/HI at this time. Reality orientation provided. Safety precautions is maintained. Will continue to monitor Q 15 mins checks for mood, safety and behavior.
--- NOTE | 2019-09-17 19:15 | NUR ---
PATIENT IN BED, AWAKE A/O X4. NO SOB NOTED. NO COMPLAIN OF PAIN. AMBULATORY. CALL LIGHT WITHIN REACH. BED IN LOWEST AND LOCKED POSITION.WILL ENDORSE TO NEXT SHIFT FOR EMILY
[2019-09-17 20:00] VITALS: BP 114/79
[2019-09-17 20:06] VITALS: BP 114/79
[2019-09-17] MEDS: [UNRECOGNIZED DRUG - OTHER] PO SCH (21:17)
[2019-09-17] MEDS: ZOLPIDEM TARTRATE 10 MG TABLET PO PRN (21:20)
--- NOTE | 2019-09-17 21:23 | NUR ---
RN notes Pt is requesting a sleeping pill. Administered ambien 10 mg/po as ordered for sleeping per pt' request. VS is stable. Safety precautions is maintained. Will continue to monitor.
--- NOTE | 2019-09-18 06:50 | NUR ---
RN closing notes Pt is resting in bed comfortably. Pt is alert and orientedX4. Respiration is normal. No SOB. No s/s of distress noted. No IV access. Pt denies SI/HI at this time. Reality orientation provided. Kept Pt clean, dry and comfortable. All needs met and attended. Safety precautions is maintained. Will endorse to morning nurse for EMILY.
[2019-09-18 08:00] VITALS: BP_SYST 90; BP_SYST 95; BP_DIAS 59
--- NOTE | 2019-09-18 08:00 | NUR ---
RN NOTES RECEIVED PATIENT IN THE ROOM WALKING IN THE HALLWAY, A/O X3, NO ACUTE RESPIRATORY DISTRESS. PATIENT ON CLINICAL TRIAL, WAS STATE HEARING VOICES , BUT NOT HARMFUL. PATIENT SMOKER, AMBULATORY SELF CARE. V/S WNL, HELD BP MEDICATION BECAUSE OF LOW BP . SAFETY PRECAUTION MAINTAINED ALL THE TI,ME.
[2019-09-18] MEDS: BENAZEPRIL PO SCH (08:26)
[2019-09-18] MEDS: AMLODIPINE PO SCH (08:26)
[2019-09-18 16:00] VITALS: BP 94/52
--- NOTE | 2019-09-18 18:19 | NUR ---
rn notes patient stable, refused pain, refused SI/HI at this time. encouraged to express feelings and concerns about medication, and side effect, patient refractable, cooperative. endorsed oncoming nurse follow plan of care.
--- NOTE | 2019-09-18 19:41 | NUR ---
RN OPENING NOTES PATIENT RECEIVED SLEEPING IN BED. A/O X 4, STABLE ON RA WITH BREATHING EVEN AND UNLABORED, NO SOB NOTED. NO SIGNS OF ACUTE DISTRESS. NO COMPLAINTS OF PAIN OR DISCOMFORT. NO IV ACCESS. SAFETY PRECAUTIONS IN PLACE WITH BED IN LOWEST POSITION, CALL LIGHT WITHIN REACH, BREAKS ON, SIDE RAILS UP. WILL CONTINUE TO MONITOR THROUGHOUT THE NIGHT.
[2019-09-18 20:00] VITALS: BP 98/54
[2019-09-18] MEDS: [UNRECOGNIZED DRUG - OTHER] PO SCH (21:12)
[2019-09-18] MEDS: ZOLPIDEM TARTRATE 10 MG TABLET PO PRN (21:17)
--- NOTE | 2019-09-19 06:46 | NUR ---
RN CLOSING NOTES PATIENT IN BED. A/O X 4, STABLE ON RA WITH BREATHING EVEN AND UNLABORED, NO SOB NOTED. NO SIGNS OF ACUTE DISTRESS. NO COMPLAINTS OF PAIN OR DISCOMFORT. NO IV ACCESS. SAFETY PRECAUTIONS IN PLACE WITH BED IN LOWEST POSITION, CALL LIGHT WITHIN REACH, BREAKS ON, SIDE RAILS UP. PATIENT COOPERATIVE THROUGHOUT THE NIGHT. NO COMPLAINTS OF HALLUCINATIONS. WILL ENDORSE TO ONCOMING SHIFT ABOUT EMILY.
--- NOTE | 2019-09-19 07:00 | NUR ---
MS RN OPENING NOTES RECEIVED PT AWAKE AND WALKING OUT OF THE ROOM AT THIS TIME. A/O X 4, NO SOB NOTED, NO S/S OF ANY ACUTE DISTRESS NOTED, NO C/O OF PAIN. BREATHING EVEN AND UNLABORED WITH EQUAL RISE AND FALL IN CHEST. SATURATING WELL ON RA. NO IV ACCESS NOTED. SAFETY PRECAUTIONS IN PLACE. BED IN LOWEST LOCKED POSITION, HOB ELEVATED, CALL LIGHT WITHIN REACH, BREAKS ON, SIDE RAILS UP. WILL CONTINUE TO MONITOR
[2019-09-19 08:00] VITALS: BP 96/59
[2019-09-19] MEDS: AMLODIPINE PO SCH (09:00)
[2019-09-19] MEDS: BENAZEPRIL PO SCH (09:00)
[2019-09-19 16:00] VITALS: BP 102/71
--- NOTE | 2019-09-19 19:30 | NUR ---
MS/RN OPENING NOTES RECEIVED PATIENT IS ROOM SITTING AT BEDSIDE. PATIENT IS ALERT AND ORIENTED X 4. NO SIGNS OF SOB OR RESPIRATORY DISTRESS NOTED. PATIENT IS TOLERATING ROOM AIR WELL. BREATHING IS EVEN AN UNLABORED. PATIENT STATES NO PAIN AT THIS TIME. NO IV ACCESS SITE NOTED. PATIENT IS ABLE TO AMBULATE WITH A STEADY GAIT. SAFETY MEASURES ARE IN PLACE. BED IS LOCKED AND PLACED IN THE LOWEST POSITION SIDE RAILS UP X 2, CALL LIGHT IS WITHIN REACH. WILL CONTINUE TO MONITOR PATIENT DURING SHIFT.
--- NOTE | 2019-09-19 20:01 | NUR ---
MS RN CLOSING NOTES PT AWAKE IN BED AT THIS TIME. PT REMAINED STABLE THROUGHOUT SHIFT. PT KEPT CLEAN AND DRY. ALL CARE, NEEDS, TREATMENT AND MEDICATIONS ADMINISTERED ANTICIPATED PER ORDER. SAFETY PRECAUTIONS IN PLACE. BED IN LOWEST LOCKED POSITION, HOB ELEVATED, CALL LIGHT WITHIN REACH, BREAKS ON, SIDE RAILS UP. WILL ENDORSE TO FOLDER MACHINE NURSE
[2019-09-19 20:26] VITALS: BP 100/63
--- NOTE | 2019-09-19 21:00 | NUR ---
MS/RN NOTES PATIENT IS REQUESTING SLEEPING MEDICATION. PATIENT WAS GIVEN AMBIEN 10 MG PO. PATIENTS V/S ARE STABLE. WILL CONTINUE TO MONITOR.
[2019-09-19] MEDS: ZOLPIDEM TARTRATE 10 MG TABLET PO PRN (21:04)
[2019-09-19] MEDS: [UNRECOGNIZED DRUG - OTHER] PO SCH (21:04)
--- NOTE | 2019-09-20 06:35 | NUR ---
MS/RN CLOSING NOTES PATIENT IN BED RESTING. PATIENT IS ALERT AND ORIENTED X 4. NO SIGNS OF SOB OR RESPIRATORY DISTRESS NOTED. PATIENT IS TOLERATING ROOM AIR WELL. BREATHING IS EVEN AN UNLABORED. PATIENT STATES NO PAIN AT THIS TIME. NO IV ACCESS SITE NOTED. PATIENT IS ABLE TO AMBULATE WITH A STEADY GAIT. ALL PATIENTS NEEDS HAVE BEEN MET DURING SHIFT. SAFETY MEASURES ARE IN PLACE. BED IS LOCKED AND PLACED IN THE LOWEST POSITION SIDE RAILS UP X 2, CALL LIGHT IS WITHIN REACH. WILL ENDORSE CARE TO DAY SHIFT.
--- NOTE | 2019-09-20 07:45 | NUR ---
MS RN OPENING NOTES RECEIVED PATIENT IN BED, AWAKE, A/O X4 AND WATCHING TV. PATIENT ON ROOM AIR; BREATHING IS EVEN AND UNLABORED; NO SOB PRESENT AT THIS TIME. PATIENT DENIES PAIN. NO IV ACCESS PRESENT. PATIENT ABLE TO AMBULATE WITH A STEADY GATE. SAFETY PRECAUTIONS IN PLACE; BED IN LOW POSITION AND LOCKED; RAILS UP X2, CALL LIGHT WITHIN REACH. WILL CONTINUE TO MONITOR PATIENT.
[2019-09-20] MEDS: AMLODIPINE PO SCH (08:45)
[2019-09-20] MEDS: BENAZEPRIL PO SCH (08:45)
--- NOTE | 2019-09-20 08:45 | NUR ---
MS RN NOTES PATIENT REFUSED MEDICATION DUE TO LOWERED BP: 100/50. PATIENT STATES HE FEELS OK. WILL CONTINUE TO MONITOR.
--- NOTE | 2019-09-20 11:30 | NUR ---
MS RN NOTES RECEIVED PATIENT IN STABLE CONDITION. ON ROOM AIR WITH NO SOB OR RESPIRATORY DISTRESS AT THIS TIME. WILL CONTINUE TO MONITOR.
--- NOTE | 2019-09-20 19:23 | NUR ---
MS RN NOTES PATIENT IN STABLE CONDITION IN BED RESTING COMFORTABLY. ALERT AND ORIENTED, ON ROOM AIR WITH NO RESPIRATORY DISTRESS AT THIS TIME. MET ALL OF PATIENT'S NEEDS. WILL ENDORSE PLAN OF CARE TO UPCOMING NIGHTSHIFT NURSE.
--- NOTE | 2019-09-20 19:52 | NUR ---
MS RN OPENING NOTES RECEIVED PATIENT IN BED, RESTING COMFORTABLY; AWAKE, A/O X4; PATIENT ON ROOM AIR; BREATHING IS EVEN AND UNLABORED; NO SOB NOTED AT THIS TIME. PATIENT DENIES PAIN. NO IV ACCESS PRESENT. PATIENT ABLE TO MAKE NEEDS KNOWN. PATIENT IS AMBULATORY, WITH STEADY GATE; SAFETY PRECAUTIONS IN PLACE; BED IN LOW POSITION AND LOCKED; RAILS UP X2, CALL LIGHT WITHIN REACH. WILL CONTINUE TO MONITOR.
[2019-09-20 20:00] VITALS: BP 97/59
[2019-09-20 20:48] VITALS: BP 97/59
[2019-09-20] MEDS: [UNRECOGNIZED DRUG - OTHER] PO SCH (21:06)
[2019-09-20] MEDS: ZOLPIDEM TARTRATE 10 MG TABLET PO PRN (21:13)
--- NOTE | 2019-09-21 06:32 | NUR ---
MS RN CLOSING NTOES PATIENT IN BED, RESTING COMFORTABLY; AWAKE, A/O X4; PATIENT ON ROOM AIR; BREATHING IS EVEN AND UNLABORED; NO SOB NOTED; PATIENT DENIES PAIN. NO IV ACCESS PRESENT. PATIENT REQUESTED ICED WATER THROUGHOUT THE NIGHT; PATIENT ABLE TO MAKE NEEDS KNOWN. PATIENT IS AMBULATORY, WITH STEADY GATE; SAFETY PRECAUTIONS IN PLACE; BED IN LOW POSITION AND LOCKED; RAILS UP X2, CALL LIGHT WITHIN REACH. WILL ENDORSE EMILY TO ONCOMING SHIFT.
--- NOTE | 2019-09-21 07:35 | NUR ---
MS/RN OPENING NOTES RECEIVED PATIENT ON BED AWAKE ALERT AND ORIENTED X4. NO COMPLAINED OF PAIN AT THIS TIME. NO APPARENT RESPIRATORY DISTRESS NOTED. WILL CONTINUE TO MONITOR.
[2019-09-21 08:00] VITALS: BP 102/76
[2019-09-21] MEDS: AMLODIPINE PO SCH (09:23)
[2019-09-21] MEDS: BENAZEPRIL PO SCH (09:23)
[2019-09-21 16:00] VITALS: BP 116/74
--- NOTE | 2019-09-21 18:56 | NUR ---
MS/RN CLOSING NOTES PATIENT IS ON BED. PATIENT IS ALERT AND ORIENTED X4. PATIENT DENIES PAIN AT THIS TIME. PATIENT IN NO APPARENT RESPIRATORY DISTRESS NOTED. IN ROOM AIR SATURATION AT 96%. SAFETY PRECAUTION WAS IN PLACED. BED IN LOWEST POSITION AND LOCKED. SIDE RAILS UP X 2. CALL LIGHT WITHIN REACH. WILL ENDORSED TO AUTOMATIC MACHINES SUPERVISOR FOR EMILY.
--- NOTE | 2019-09-21 19:33 | NUR ---
PATIENT IN BED FACING THE WINDOW RESP EVEN AND UNLABORED EYE GLASSES ON THE BEDSIDE TABLE CALL LIGHT WITHIN HIS REACH
[2019-09-21 20:00] VITALS: BP 92/58
[2019-09-21 20:19] VITALS: BP 92/59
[2019-09-21] MEDS: [UNRECOGNIZED DRUG - OTHER] PO SCH (21:59)
[2019-09-21] MEDS: ZOLPIDEM TARTRATE 10 MG TABLET PO PRN (21:59)
--- NOTE | 2019-09-22 05:15 | NUR ---
Mr. Morris slept 8 hours tonight. He is quiet and soft spoken. eye contact present when engaged in conversation. No c/o.
--- NOTE | 2019-09-22 07:43 | NUR ---
RN OPENING NOTE PATIENT IN BED RESTING COMFORTABLY. PATIENT IN NO ACUTE DISTRESS. NO SOB NOTED. PATIENT BREATHING IS EVEN AND UNLABORED. SAFETY PRECAUTIONS IN PLACE. PATIENT BED IS LOCKED AND IN LOWEST POSITION. CALL LIGHT WITHIN REACH. WILL CONTINUE TO MONITOR.
[2019-09-22 08:00] VITALS: BP 151/94
[2019-09-22] MEDS: AMLODIPINE PO SCH (08:14)
[2019-09-22] MEDS: BENAZEPRIL PO SCH (08:14)
[2019-09-22 16:00] VITALS: BP 109/69
--- NOTE | 2019-09-22 19:49 | NUR ---
MS RN OPENING NOTES PATIENT RECEIVED RESTING IN BED COMFORTABLY; A/O/X4; BREATHING EVEN AND UNLABORED; NO SOB NOTED; TOLERATING ROOM AIR WELL; PATIENT AMBULATORY WITH STEADY GATE; ABLE TO MAKE NEEDS KNOWN; SAFETY PRECAUTIONS IMPLEMENTED; BED LOCKED IN LOW POSITION; SIDE RAILSX2; CALL LIGHT WITHIN REACH; WILL CONT TO MONITOR
[2019-09-22 20:00] VITALS: BP 100/60
[2019-09-22] MEDS: [UNRECOGNIZED DRUG - OTHER] PO SCH (21:25)
[2019-09-22] MEDS: ZOLPIDEM TARTRATE 10 MG TABLET PO PRN (21:26)
--- NOTE | 2019-09-23 07:01 | NUR ---
MS RN CLOSING NOTES PATIENT RESTING IN BED COMFORTABLY; A/OX4; BREATHING EVEN AND UNLABORED; TOLERATING ROOM AIR WELL; NO SOB NOTED; PATIENT AMBULATORY WITH STEADY GATE; PATIENT ABLE TO MAKE NEEDS KNOWN; SAFETY PRECAUTIONS IMPLEMENTED; BED LOCKED IN LOW POSITION; SIDE RAILSX2; CALL LIGHT WITHIN REACH; WILL ENDORSE EMILY TO ONCOMING SHIFT
--- NOTE | 2019-09-23 07:30 | NUR ---
RN OPENING NOTES PATIENT IN BED RESTING COMFORTABLY. AOX3. NO CARDIAC OR RESPIRATORY DISTRESS NOTED. NO SOB NOTED. SATURATING WELL ON ROOM AIR. PT IS AMBULATORY WITH STEADY GAIT. SAFETY PRECAUTIONS IN PLACE. PATIENT BED IS LOCKED AND IN LOWEST POSITION. CALL LIGHT WITHIN REACH. WILL CONTINUE TO MONITOR.
[2019-09-23 08:00] VITALS: BP 103/70
--- NOTE | 2019-09-23 08:15 | NUR ---
HELD BP MEDS BP MEDICATION WAS HELD THIS AM. PT BP WAS AT 103/70 WITH HR OF 65. PT IS AWARE.
[2019-09-23] MEDS: AMLODIPINE PO SCH (08:40)
[2019-09-23] MEDS: BENAZEPRIL PO SCH (08:40)
[2019-09-23] MEDS ORDERED: LORAZEPAM 1 MG TABLET FOR AGITATION PO PRN (12:00)
[2019-09-23 16:30] VITALS: BP 113/69
--- NOTE | 2019-09-23 19:31 | NUR ---
RN CLOSING NOTES PATIENT IN BED RESTING COMFORTABLY. AOX3. NO CARDIAC OR RESPIRATORY DISTRESS NOTED. NO SOB NOTED. SATURATING WELL ON ROOM AIR. PT IS AMBULATORY WITH STEADY GAIT. PT IS VERY PLEASANT. NO BEHAVIORAL ISSUES NOTED. NO SUICIDAL OR HOMICIDAL IDEATIONS NOTED. SAFETY PRECAUTIONS IN PLACE. PATIENT BED IS LOCKED AND IN LOWEST POSITION. CALL LIGHT WITHIN REACH. WILL CONTINUE TO MONITOR.
--- NOTE | 2019-09-23 21:00 | NUR ---
MS RN OPENING NOTES PATIENT IN BED RESTING A/OO X 3. STABLE ON RA. AMBULATORY. NO SIGNS OF ACUTE DISTRESS. NO COMPLAINTS OF PAIN OR DISCOMFORT. PLEASANT AND COOPERATIVE. WILL CONTINUE TO MONITOR THROUGHOUT THE NIGHT.
[2019-09-23] MEDS: [UNRECOGNIZED DRUG - OTHER] PO SCH (21:36)
[2019-09-23] MEDS: ZOLPIDEM TARTRATE 10 MG TABLET PO PRN (21:40)
--- NOTE | 2019-09-24 06:48 | NUR ---
MS RN CLOSING NOTES PATIENT RESTING IN BED A/O X4. STABLE ON RA. NO ACUTE DISTRESS NOTED. PATIENT COOPERATIVE THROUGHOUT THE NIGHT. NO EVIDENCE OF HALLUCINATIONS. ALL NEEDS ATTENDED TO. WILL ENDORSE TO ONCOMING SHIFT ABOUT EMILY.
[2019-09-24 08:00] VITALS: BP 104/70
[2019-09-24] MEDS: BENAZEPRIL PO SCH (08:17)
[2019-09-24] MEDS: AMLODIPINE PO SCH (08:17)
[2019-09-24 15:00] VITALS: BP 126/73
--- NOTE | 2019-09-24 19:30 | NUR ---
MS KAREN OPENING NOTES: RECEIVED PT ASLEEP AT THIS TIME. PT AROUSABLE TO NAME AND TOUCH. PT IS A/OX4. NO SOB NOTED .NO S/S OF DISTRESS. NO IV NOTED. AWARE. BED KEPT IN LOW, LOCKED POSITION, AND SIDE RAILS X 2 UP. CALL LIGHT WITHIN REACH. WILL CONTINUE TO MONITOR PT. Addendum: 09/24/19 at 2228 by DARON GONZALEZ RN DUPLICATE
--- NOTE | 2019-09-24 19:54 | NUR ---
RN OPENING NOTES: RECEIVED PT ON ROOM AIR AND IS TOLERATING WELL. PT ASLEEP AT THIS TIME. NO SOB NOTED. NO S/S OF DISTRESS. BED KEPT IN LOW, LOCKED POSITION, AND SIDE RAILS X 3 UP. WILL CONTINUE TO MONITOR PT.
[2019-09-24 20:00] VITALS: BP 116/74
[2019-09-24] MEDS: [UNRECOGNIZED DRUG - OTHER] PO SCH (21:50)
[2019-09-24] MEDS: ZOLPIDEM TARTRATE 10 MG TABLET PO PRN (21:50)
--- NOTE | 2019-09-24 21:51 | NUR ---
RN NOTES: PT REQUESTING FOR SLEEPING AID. PT WAD ADMINISTERED AMBIEN 10MG PO. WILL CONTINUE TO MONITOR.
--- NOTE | 2019-09-25 06:37 | NUR ---
RN CLOSING NOTES: ALL NEEDS WERE ATTENDED AND ANTICIPATED FOR. PT STILL IN BED AND IS ASLEEP AT THIS TIME. PT EASILY AROUSABLE. PT HAS NO IV AT THIS TIME PT IS A CLINICAL TRIAL. BED KEPT IN LOW, LOCKED POSITION, AND SIDE RAILS X 2 UP. WILL ENDORSE TO AM NURSE FOR EMILY. Addendum: 09/25/19 at 0640 by DARON GONZALEZ RN PT SLEPT FOR AT LEAST 8 HOURS.
--- NOTE | 2019-09-25 07:10 | NUR ---
RN NOTES: ENDORSED TO AM MIKE MAGANA RN FOR EMILY.
[2019-09-25 08:00] VITALS: BP 121/81
[2019-09-25] MEDS: AMLODIPINE PO SCH (09:04)
[2019-09-25] MEDS: BENAZEPRIL PO SCH (09:04)
[2019-09-25 16:00] VITALS: BP 119/87
--- NOTE | 2019-09-25 19:02 | NUR ---
Patient remains stable, with no distress noted . SAfety precautions in place , call light within reach. Will endorse to next shift for EMILY
--- NOTE | 2019-09-25 19:32 | NUR ---
MS RN NOTES PATIENT IN ROOM, ALERT AND ORIENTED X 4. BREATHING EVEN AND UNLABORED ON ROOM AIR. SHOWS NO SIGNS OF ACUTE RESPIRATORY DISTRESS. NO ACUTE PAIN. DENIES SI/HI. SAFETY PRECAUTIONS IN PLACE. BED IN LOWEST POSITION, LOCKED AND WILL CONTINUE TO MONITOR.
[2019-09-25 20:00] VITALS: BP 116/69
[2019-09-25] MEDS: [UNRECOGNIZED DRUG - OTHER] PO SCH (21:21)
[2019-09-25] MEDS: ZOLPIDEM TARTRATE 10 MG TABLET PO PRN (21:21)
--- NOTE | 2019-09-26 06:36 | NUR ---
MS RN NOTES PATIENT IN ROOM, SLEPT THROUGH THE NIGHT. ALERT AND ORIENTED X 4. BREATHING EVEN AND UNLABORED ON ROOM AIR. SHOWS NO SIGNS OF ACUTE RESPIRATORY DISTRESS. NO ACUTE PAIN. DENIES SI/HI. ALL DUE MEDICATIONS GIVEN. SAFETY PRECAUTIONS IN PLACE. BED IN LOWEST POSITION, LOCKED AND WILL ENDORSE TO ONCOMING NURSE.
[2019-09-26] MEDS: BENAZEPRIL PO SCH (08:05)
[2019-09-26] MEDS: AMLODIPINE PO SCH (08:05)
--- NOTE | 2019-09-26 08:06 | NUR ---
MS RN NOTE PATIENT BLOOD PRESSURE 93/60 AND HR 63. HELD BP MED AMLODIPINE 0900 DOSE DUE TO DECREASED BP.
[2019-09-26 08:21] VITALS: BP 93/60
[2019-09-26 17:01] VITALS: BP 114/74
--- NOTE | 2019-09-26 19:50 | NUR ---
MS RN NOTES PATIENT IN ROOM, IN BED, ALERT AND ORIENTED X 4. BREATHING EVEN AND UNLABORED ON ROOM AIR. SHOWS NO SIGNS OF ACUTE RESPIRATORY DISTRESS. NO ACUTE PAIN. DENIES SI/HI. SAFETY PRECAUTIONS IN PLACE. BED IN LOWEST POSITION, LOCKED AND WILL CONTINUE TO MONITOR.
[2019-09-26 20:00] VITALS: BP 123/67
[2019-09-26] MEDS: ZOLPIDEM TARTRATE 10 MG TABLET PO PRN (21:00)
[2019-09-26] MEDS: [UNRECOGNIZED DRUG - OTHER] PO SCH (21:00)
--- NOTE | 2019-09-27 07:13 | NUR ---
MS RN NOTES RECEIVED PATIENT IN BED, ASLEEP. ARUOSABLE TO VERBAL AND TACTILE STIMULI. ALERT AND ORIENTED X4. NO SOB. DENIES ANY C/O PAIN NOR DISCOMFORT AT THIS TIME. ON CLINICAL TRIALS WITHOUT S/S OF COMPLICATIONS OBSERVED. BED IN LOWEST POSITION, LOCKED. ABLE TO VERBALIZE NEEDS. CALL LIGHT WITHIN REACH.
[2019-09-27 08:00] VITALS: BP 110/79
[2019-09-27] MEDS: BENAZEPRIL PO SCH (08:55)
[2019-09-27] MEDS: AMLODIPINE PO SCH (08:55)
[2019-09-27 17:00] VITALS: BP 125/90
--- NOTE | 2019-09-27 18:32 | NUR ---
MS RN NOTES PATIENT RESTING COMFORTABLY IN BED WATCHING TV. AMBULATES ALONG UNIT DURING THE SHIFT WITH STEADY GAIT. NO S/S OF RESPIRATORY DISTRESS. DENIES ANY C/O PAIN NOR DISCOMFORT AT THIS TIME. REMAIN ON CLINICAL TRIALS WITHOUT S/S OF COMPLICATIONS OBSERVED. DENIES ANY C/O AUDITORY/VISUAL HALLUCINATIONS. BED IN LOWEST POSITION, LOCKED. ABLE TO VERBALIZE NEEDS. CALL LIGHT WITHIN REACH. IN NO APPARENT DISTRESS.
--- NOTE | 2019-09-27 19:20 | NUR ---
MS RN OPENING NOTES: RECEIVED PATIENT IN BED, AWAKE, A/O X4. NO SOB NOTED. NO COMPLAIN OF PAIN. AMBULATORY. PATIENT IS CALM AND APPEARS COMFORTABLE. PATIENT IS REQUESTING AMBIEN AND THE INVESTIGATIONAL MED TO BE GIVEN AT 2100.
[2019-09-27 20:00] VITALS: BP 103/60
[2019-09-27] MEDS: ZOLPIDEM TARTRATE 10 MG TABLET PO PRN (20:55)
[2019-09-27] MEDS: [UNRECOGNIZED DRUG - OTHER] PO SCH (21:00)
--- NOTE | 2019-09-28 06:57 | NUR ---
MS RN CLOSING NOTES: PATIENT IN BED, AWAKE, A/O X4. NO SOB NOTED. CALL LIGHT WITHIN REACH. BED IN LOWEST AND LOCKED POSITION. AMBULATORY. JUST CAME BACK FROM OUTSIDE. NO SOB NOTED. NO COMPLAIN OF PAIN. PATIENT IS CALM. RESTED THROUGHOUT THE NIGHT.
--- NOTE | 2019-09-28 07:35 | NUR ---
MS RN NOTES RECEIVED PATIENT ALERT AND AWAKE AMBULATING IN UNIT HALLWAY. ALERT AND ORIENTED X4. NO SOB. DENIES ANY C/O PAIN NOR DISCOMFORT AT THIS TIME. ON CLINICAL TRIALS WITHOUT S/S OF COMPLICATIONS OBSERVED. BED IN LOWEST POSITION, LOCKED. ABLE TO VERBALIZE NEEDS. CALL LIGHT WITHIN REACH.
[2019-09-28 08:00] VITALS: BP 110/74
[2019-09-28] MEDS: AMLODIPINE PO SCH (09:20)
[2019-09-28] MEDS: BENAZEPRIL PO SCH (09:20)
[2019-09-28 17:00] VITALS: BP 108/81
--- NOTE | 2019-09-28 18:31 | NUR ---
MS RN NOTES ALERT AND AWAKE ORIENTED X4. NO SOB. DENIES ANY C/O PAIN NOR DISCOMFORT AT THIS TIME. ON CLINICAL TRIALS WITHOUT S/S OF COMPLICATIONS OBSERVED. DENIES ANY C/O NOR VERBALIZATION AUDITORY/VISUAL HALLUCINATIONS. DENIES ANY VERBALIZATION OF SUICIDAL IDEATION. BED IN LOWEST POSITION, LOCKED. ABLE TO VERBALIZE NEEDS. CALL LIGHT WITHIN REACH. IN NO APPARENT DISTRESS.
--- NOTE | 2019-09-28 19:05 | NUR ---
MS RN NOTES RECEIVED PT IN BED AWAKE AND ABLE TO MAKE NEEDS KNOWN. PT A/O X3. RESPIRATIONS EVEN AND UNLABORED WITH NO S/S OF ACUTE DISTRESS OR SOB NOTED. PT ON CLINICAL TRIALS WITHOUT S/S OF COMPLICATIONS OBSERVED. PT DENIES SI AND HI. NO COMPLAINTS OF PAIN AT THIS TIME. SAFETY MEASURES IN PLACE WITH BED IN LOWEST LOCKED POSITION WITH SIDE RAILS UP X2. CALL LIGHT WITHIN REACH. WILL CONTINUE TO MONITOR.
[2019-09-28 20:00] VITALS: BP 117/71
[2019-09-28] MEDS: ZOLPIDEM TARTRATE 10 MG TABLET PO PRN (21:00)
[2019-09-28] MEDS: [UNRECOGNIZED DRUG - OTHER] PO SCH (21:00)
--- NOTE | 2019-09-29 07:10 | NUR ---
MS RN NOTES RECEIVED PATIENT ASLEEP IN BED, AROUSABLE TO VERBAL AND TACTILE STIMULI. ALERT AND ORIENTED X4. NO SOB. DENIES ANY C/O PAIN NOR DISCOMFORT AT THIS TIME. ON CLINICAL TRIALS WITHOUT S/S OF COMPLICATIONS OBSERVED. BED IN LOWEST POSITION, LOCKED. ABLE TO VERBALIZE NEEDS. CALL LIGHT WITHIN REACH.
--- NOTE | 2019-09-29 07:15 | NUR ---
MS RN NOTES RECEIVED PT IN BED AWAKE AND ABLE TO MAKE NEEDS KNOWN. PT A/O X3. RESPIRATIONS EVEN AND UNLABORED WITH NO S/S OF ACUTE DISTRESS OR SOB NOTED THROUGHOUT SHIFT. PT ON CLINICAL TRIALS WITHOUT S/S OF COMPLICATIONS OBSERVED. PT DENIES SI AND HI. NO COMPLAINTS OF PAIN AT THIS TIME. SAFETY MEASURES IN PLACE WITH BED IN LOWEST LOCKED POSITION WITH SIDE RAILS UP X2. CALL LIGHT WITHIN REACH. WILL ENDORSE TO ONCOMING NURSE FOR EMILY.
[2019-09-29 08:00] VITALS: BP 104/60
[2019-09-29] MEDS: AMLODIPINE PO SCH (09:40)
[2019-09-29] MEDS: BENAZEPRIL PO SCH (09:40)
[2019-09-29 20:40] VITALS: BP 113/73
[2019-09-29] MEDS: [UNRECOGNIZED DRUG - OTHER] PO SCH (21:02)
[2019-09-29] MEDS: ZOLPIDEM TARTRATE 10 MG TABLET PO PRN (21:02)
[2019-09-30] MEDS ORDERED: LORAZEPAM 1 MG TABLET FOR AGITATION PO PRN ×2 (12:00→13:30)
[2019-09-30] MEDS: BENAZEPRIL PO SCH (13:06)
[2019-09-30] MEDS: AMLODIPINE PO SCH (13:06)
[2019-09-30 16:00] VITALS: BP 113/61
--- NOTE | 2019-09-30 19:49 | NUR ---
RN OPENING NOTES PATIENT RECEIVED RESTING IN BED A/O X 3. STABLE ON RA WITH BREATHING EVEN AND UNLABORED, NO SOB NOTED. NO SIGNS OF ACUTE DISTRESS. NO COMPLAINTS OF PAIN OR DISCOMFORT. PATIENT COOPERATIVE. DENIES AND HALLUCINATIONS. SAFETY PRECAUTIONS IN PLACE WITH BED IN LOWEST POSITION, CALL LIGHT WITHIN REACH, BREAKS ON, SIDE RAILS UP. WILL CONTINUE TO MONITOR THROUGHOUT THE NIGHT.
[2019-09-30 20:00] VITALS: BP 124/70
[2019-09-30] MEDS: [UNRECOGNIZED DRUG - OTHER] PO SCH (21:09)
[2019-09-30] MEDS: ZOLPIDEM TARTRATE 10 MG TABLET PO PRN (21:13)
--- NOTE | 2019-10-01 07:14 | NUR ---
RN CLOSING NOTES PATIENT RESTING IN BED A/O X 3. STABLE ON RA WITH BREATHING EVEN AND UNLABORED, NO SOB NOTED. NO SIGNS OF ACUTE DISTRESS. NO COMPLAINTS OF PAIN OR DISCOMFORT. PATIENT COOPERATIVE. DENIES AND HALLUCINATIONS THROUGHOUT THE NIGHT. SAFETY PRECAUTIONS IN PLACE WITH BED IN LOWEST POSITION, CALL LIGHT WITHIN REACH, BREAKS ON, SIDE RAILS UP. ALL NEEDS ATTENDED TO. WILL ENDORSE TO ONCOMING SHIFT ABOUT EMILY.
--- NOTE | 2019-10-01 07:27 | NUR ---
MS RN NOTES PATIENT RECEIVED IN BED, RESTING COMFORTABLY. ALERT AND ORIENTED X 3. ON ROOM AIR WITH NO SIGNS OF RESPIRATORY DISTRESS, AND EVEN NON-LABORED BREATHING. SKIN WARM AND DRY TO TOUCH. NO PAIN OR DISCOMFORT AT THIS TIME. SAFETY PRECAUTIONS IN PLACE WITH BED LOCKED, BED IN THE LOWEST POSITION, BILATERAL SIDE RAILS UP, AND CALL LIGHT WITH IN EASY REACH. WILL CONTINUE TO MONITOR PATIENT.
[2019-10-01 08:00] VITALS: BP 140/70
[2019-10-01] MEDS: BENAZEPRIL PO SCH (08:41)
[2019-10-01] MEDS: AMLODIPINE PO SCH (08:41)
[2019-10-01 16:00] VITALS: BP 136/92
--- NOTE | 2019-10-01 18:34 | NUR ---
MS RN NOTES PATIENT IN BED RESTING COMFORTABLY, ALERT AND ORIENTED X3. ON ROOM AIR, WITH NO SIGNS OF RESPIRATORY DISTRESS, WITH NON-LABORED BREATHING. MET ALL OF PATIENT'S NEEDS. PATIENT DENIES OF ANY PAIN OR DISCOMFORT AT THIS TIME. SAFETY PRECAUTIONS IMPLEMENTED WITH BED LOCKED, BED IN THE LOWEST POSITION, BILATERAL SIDE RAILS UP, AND CALL LIGHT WITHIN EASY REACH OF THE PATIENT. WILL ENDORSE PLAN OF CARE TO UPCOMING NURSE.
--- NOTE | 2019-10-01 19:05 | NUR ---
rn ms opening notes received patient in bed awake alert and oriented x4, respirations even and unlabored with equal rise and fall of chest, denies any pain or discomfort , denies any si/hi at this time, oriented to staff and call light and kept within reach, low bed and locked, fluids offered, frequent checks rendered, all needs attended remains comfortable will attend to needs. does no display signs of hallucination at this time.
[2019-10-01 20:00] VITALS: BP 103/75
[2019-10-01] MEDS: [UNRECOGNIZED DRUG - OTHER] PO SCH (21:06)
[2019-10-01] MEDS: ZOLPIDEM TARTRATE 10 MG TABLET PO PRN (21:06)
--- NOTE | 2019-10-01 21:06 | NUR ---
RN MS NOTES PATIENT REQUESTED FOR AMBIEN TO ASSIST WITH SLEEPING. AMBIEN PRN GIVEN ORDERED. WILL CONTINUE TO MONITOR FOR EFFECTIVENESS.
--- NOTE | 2019-10-02 07:13 | NUR ---
rn ms closing notes patient in bed awake alert and oriented x4, respirations even and unlabored with equal rise and fall of chest, denies any pain or discomfort , denies any si/hi at this time, call light kept within reach, low bed and locked, fluids offered, frequent checks rendered, all needs attended remains comfortable will attend to needs. does no display signs of hallucination at this time. will endorse to next shift.
--- NOTE | 2019-10-02 07:30 | NUR ---
MS/RN - Assessment Patient is alert and oriented x 4, ambulatory, denies pain, no apparent distress, calm and cooperative, under clinical trial for Schizophrenia. Safety precautions maintained. Discussed plan of care with patient and in agreement.
[2019-10-02 08:00] VITALS: BP 95/57
[2019-10-02] MEDS: AMLODIPINE PO SCH (08:15)
[2019-10-02] MEDS: BENAZEPRIL PO SCH (08:15)
[2019-10-02 16:00] VITALS: BP 96/60
--- NOTE | 2019-10-02 18:07 | NUR ---
MS/RN - End of shift summary No new events seen, resting comfortably, no behavioral issues noted at this time. Will continue with current plan of care.
[2019-10-02 20:21] VITALS: BP 93/55
[2019-10-02 20:45] VITALS: BP 93/55
[2019-10-02] MEDS: ZOLPIDEM TARTRATE 10 MG TABLET PO PRN (21:16)
[2019-10-02] MEDS: [UNRECOGNIZED DRUG - OTHER] PO SCH (21:16)
--- NOTE | 2019-10-02 21:16 | NUR ---
rn ms notes patient requested for ambien prn to assist with sleep. prn given as ordered, will continue to monitor for effectiveness, vs wnl.
[2019-10-02 21:19] VITALS: BP 106/66
--- NOTE | 2019-10-03 06:35 | NUR ---
rn ms closing patient in bed awake alert and oriented x4, respirations even and unlabored with equal rise and fall of chest, denies any pain or discomfort , denies any si/hi at this time, call light kept within reach, low bed and locked, fluids offered, frequent checks rendered, all needs attended remains comfortable will attend to needs. does no display signs of hallucination at this time slept well. will continue to monitor and endorse to next shift.
--- NOTE | 2019-10-03 07:36 | NUR ---
MS/RN - Assessment Patient is alert and oriented x 4, ambulatory with steady gait, denies pain, no apparent distress, stable on room air, calm and cooperative with care, no behavioral issues overnight. Safety precautions maintained. Will continue with current plan of care.
[2019-10-03 08:00] VITALS: BP 96/65
[2019-10-03] MEDS: BENAZEPRIL PO SCH (08:19)
[2019-10-03] MEDS: AMLODIPINE PO SCH (08:19)
[2019-10-03 16:00] VITALS: BP 106/62
--- NOTE | 2019-10-03 18:17 | NUR ---
MS/RN - End of shift summary No new events seen, resting comfortably, no behavioral issues noted at this time. Will continue with current plan of care.
--- NOTE | 2019-10-03 19:31 | NUR ---
MS RN PT A/O X 3, STABLE AND NOT IN DISTRESS, SAFETY MEASURES IN PLACE. WILL CONT TO MONITOR.
[2019-10-03 20:00] VITALS: BP 135/85
[2019-10-03] MEDS: ZOLPIDEM TARTRATE 10 MG TABLET PO PRN (21:19)
[2019-10-03] MEDS: [UNRECOGNIZED DRUG - OTHER] PO SCH (21:19)
--- NOTE | 2019-10-04 05:58 | NUR ---
MS RN PT SLEPT WELL 10 HOURS, NO PSYCHIATRIC INSTABILITY, ALL NEEDS ATTENDED AND ANTICIPATED, AM CARE RENDERED,KEPT CLEAN, DRY AND COMFORTABLE. SAFETY MEASURES AT ALL TIMES. WILL ENDORSE TO NEXT SHIFT.
--- NOTE | 2019-10-04 07:10 | NUR ---
RN OPENING NOTES RECEIVED PATIENT IN BED RESTING. NOT IN ANY FORM OF DISTRESS. NO SOB. DENIED PAIN OR DISCOMFORT AT THIS TIME. NO IV ACCESS. SAFETY MEASURES IN PLACE. BED IN LOW/LOCKED POSITION. SIDERAILS UPX2,CALL LIGHT IN REACH. WILL MONITOR ACCORDINGLY.
[2019-10-04 08:22] VITALS: BP 111/79
[2019-10-04] MEDS: BENAZEPRIL PO SCH (09:18)
[2019-10-04] MEDS: AMLODIPINE PO SCH (09:18)
[2019-10-04 17:29] VITALS: BP 121/84
--- NOTE | 2019-10-04 18:40 | NUR ---
RN CLOSING NOTES PATIENT IN STABLE CONDITION. ALL NEEDS ATTENDED AND PROVIDED. ALL DUE MEDICATIONS GIVEN ORDERED. KEPT PATIENT SAFE AND COMFORTABLE. BED IN LOW/LOCKED, POSITON. SIDERAILS UPX2, CALL LIGHT IN REACH. WILL ENDORSE TO NIGHT RN FOR EMILY.
--- NOTE | 2019-10-04 19:11 | NUR ---
MS RN: RECEIVED PATIENT Patient in bed, awake. On Clinical Trial study. Patient appears calm, no behavior agitation. Per patient request to take sleeping medication at 9:00pm tonight. Indication and possible side effect provided to patient, verbalized understanding.
[2019-10-04 20:00] VITALS: BP 134/68
[2019-10-04 20:22] VITALS: BP 134/68
[2019-10-04] MEDS: ZOLPIDEM TARTRATE 10 MG TABLET PO PRN (21:04)
[2019-10-04] MEDS: [UNRECOGNIZED DRUG - OTHER] PO SCH (21:04)
--- NOTE | 2019-10-05 06:29 | NUR ---
MS RN: END OF SHIFT REPORT Patient in bed, awake. Calm and cooperative, compliant with medication. Slept well with PRN Ambien as requested per patient to take last night. No agitated behavior. Independent with ADL's and mobility. Continue on Clinical Trial study as planned. Will endorse to oncoming RN.
--- NOTE | 2019-10-05 07:44 | NUR ---
MS/RN Opening note Patient received from awake overnight monitor. A/O X4, vital signs within range for patient, denies pain or discomfort. All questions and concerns addressed. Call light within reach, safety measures in place. Will continue to monitor and ensure safety.
[2019-10-05 07:48] VITALS: BP 109/73
[2019-10-05 08:00] VITALS: BP 109/73
[2019-10-05] MEDS: BENAZEPRIL PO SCH (08:18)
[2019-10-05] MEDS: AMLODIPINE PO SCH (08:18)
--- NOTE | 2019-10-05 13:00 | NUR ---
MS/RN Behavior Denie any visual or auditory hallucinations.
[2019-10-05 16:00] VITALS: BP 121/77
--- NOTE | 2019-10-05 18:20 | NUR ---
MS/RN End note Patient remains in stable condition, no changes to plan of care. Cooperative with nursing, no behavior outbursts or disruption. Has spent entire day in room, self isolating. Will endorse to scene shifter.
[2019-10-05 20:00] VITALS: BP 113/77
--- NOTE | 2019-10-05 20:00 | NUR ---
HEALTH EDUCATION COORDINATOR: Received report from day shift rn. A/O x4, denies any pain or discomfort. denies any si/hi, denies auditory hallucination. Continent, ambulatory with steady gait, has smoking privileges. Discussed plan of care to pt. Investigational meds at 2200. Safety precautions for fall initiated, call light in reach, will continue monitoring pt.
[2019-10-05] MEDS: ZOLPIDEM TARTRATE 10 MG TABLET PO PRN (21:01)
--- NOTE | 2019-10-05 21:01 | NUR ---
rn notes: tavo harvey administered to pt per request. found out that investigational mediation not in the pt's cassette in med room. will call dr london.
--- NOTE | 2019-10-05 21:37 | NUR ---
rn notes: 2109- received call from rn sup to close ms2, will move pt to [facility]. pt transferred to [id number] with all belongings brought with pt upon transfer.
--- NOTE | 2019-10-05 22:01 | NUR ---
transfer of care notes: No untoward behavior outburst noted. Denies any si/hi. MD orders to Hold Ativan tonight and NPO tonight after 2099. Vs remains stable, needs attended. . Safety precautions for fall remains engaged, call light in reach,endorsed to khari rn for continuity of care Addendum: 10/06/19 at 0119 by FUENTES BEASLEY RN transfer of care notes: No untoward behavior outburst noted. Denies any si/hi. MD orders to Hold Ativan 10/06/2019 and NPO 10/06/2019 after 2099. Vs remains stable, needs attended. . Safety precautions for fall remains engaged, call light in reach,endorsed to [facility] rn for continuity of care
--- NOTE | 2019-10-05 22:05 | NUR ---
MS RN NOTES RECEIVED PT FROM ESTEFANI JONES FOR EMILY. WILL CONTINUE TO MONITOR.
[2019-10-06] MEDS: [UNRECOGNIZED DRUG - OTHER] PO SCH ×2 (00:04→21:12)
--- NOTE | 2019-10-06 07:30 | NUR ---
RN MS NOTES PT IN HIS ROOM, AWAKE, ALERT AND ORIENTED, EATING BREAKFAST, NO COMPLAINT OF PAIN OR ANY DISCOMFORT, AMBULATES WITH STEADY GAIT, CALL LIGHT WITHIN REACH, NO BEHAVIOR PROBLEM NOTED.
[2019-10-06 08:00] VITALS: BP 104/66
[2019-10-06] MEDS: AMLODIPINE PO SCH (08:53)
[2019-10-06] MEDS: BENAZEPRIL PO SCH (08:53)
--- NOTE | 2019-10-06 14:28 | NUR ---
RN MS NOTES PT AWAKE, ALERT AND ORIENTED, EATING LUNCH, NO COMPLAINT OF PAIN, NOT IN DISTRESS, AMBULATES WITH STEADY GAIT, NEEDS ATTENDED.
[2019-10-06 16:00] VITALS: BP 96/64
--- NOTE | 2019-10-06 18:42 | NUR ---
RN MS NOTES PT IN HIS ROOM, AWAKE, ALERT AND ORIENTED, AMBULATES WITH STEADY GAIT, NO BEHAVIOR PROBLEM, COMPLIANT WITH MEDS AND INTERVENTIONS, CALL LIGHT WITHIN REACH.
--- NOTE | 2019-10-06 19:40 | NUR ---
MS RN OPENING NOTES RECEIVED PATIENT FROM MORNING SHIFT, ALERT AND ORIENTED X 4. VERBALLY RESPONSIVE, AMBULATORY AND ABLE TO FOLLOW DIRECTIONS. BREATHING REGULAR AND UNLABORED ON ROOM AIR. NO IV ACCESS. DENIES SUICIDAL IDEATION OR PAIN/DISCOMFORT AT THIS TIME. ADVISED THAT HE'S GOING TO BE NOTHING BY MOUTH STARTING MIDNIGHT, VERBALIZED UNDERSTANDING. BED LOW AND LOCKED ON SEMI FOWLERS POSITION, CALL LIGHT IN REACH. WILL CONTINUE TO MONITOR.
[2019-10-06 20:00] VITALS: BP 98/60
[2019-10-06] MEDS: ZOLPIDEM TARTRATE 10 MG TABLET PO PRN (22:55)
--- NOTE | 2019-10-06 23:00 | NUR ---
MS RN NOTES COMPLAINED OF INABILITY TO STAY ASLEEP, AMBIEN 10MG GIVEN BY MOUTH. NON-PHARMACOLOGICAL INTERVENTIONS PROVIDED. WILL CONTINUE TO MONITOR.
--- NOTE | 2019-10-07 06:25 | NUR ---
MS RN CLOSING NOTES PATIENT IN BED, ALERT AND ORIENTED X 4. AFEBRILE WITH NO S/S OF DISTRESS OBSERVED. NO IV ACCESS. NO COMPLAINTS OF PAIN/DISCOMFORT REPORTED THE WHOLE SHIFT. MAINTAINED NPO FOR BLOOD DRAW. BED LOW AND LOCKED ON SEMI FOWLERS POSITION, CALL LIGHT IN REACH. WILL ENDORSE TO MORNING SHIFT FOR EMILY.
--- NOTE | 2019-10-07 07:10 | NUR ---
MS RN OPENING NOTE RECEIVED PT AWAKE IN BED AT THIS TIME. A/O X 4, NO SOB NOTED, NO S/S OF ANY ACUTE DISTRESS NOTED. NO C/O PAIN AT THIS TIME. RESPIRATIONS ARE EVEN AND UNLABORED WITH EQUAL RISE AND FALL IN CHEST. PT ABLE TO MAKE NEEDS KNOWN. NO IV ACCESS NOTED. FALL AND SAFETY PRECAUTION IN PLACE AND MAINTAINED AT ALL TIMES. BED IN LOWEST LOCKED POSITION, HOB ELEVATED, RAILS UP X 2, CALL LIGHT WITHIN REACH. WILL CONTINUE TO MONITOR
[2019-10-07 08:00] VITALS: BP 119/67
[2019-10-07] MEDS: AMLODIPINE PO SCH (10:21)
[2019-10-07] MEDS: BENAZEPRIL PO SCH (10:21)
[2019-10-07] MEDS ORDERED: LORAZEPAM 1 MG TABLET FOR AGITATION PO PRN (12:00)
[2019-10-07 16:00] VITALS: BP 97/52
--- NOTE | 2019-10-07 18:46 | NUR ---
MS RN CLOSING NOTES PT AWAKE IN BED AT THIS TIME. PT REMAINED STABLE THROUGHOUT SHIFT. ALL CARE, NEEDS, MEDICATION AND TREATMENT ADMINISTERED ANTICIPATED PER ORDER. SAFETY PRECAUTION IN PLACE AND MAINTAINED AT ALL TIMES. BED IN LOWEST LOCKED POSITION, HOB ELEVATED, RAILS UP X 2, CALL LIGHT WITHIN REACH. WILL ENDORSE TO SUPERVISOR NETWORK CONTR[employer]PERATORS NURSE FOR EMILY
--- NOTE | 2019-10-07 19:50 | NUR ---
MS/RN OPENING NOTE Patient awake in bed. A/O x4. Breathing even, clear, unlabored, on room air. No JVD. Pedal pulses 2+, symmetrical. Patient denies pain. Afebrile. Skin warm, pink, dry, appropriate for ethnicity. CRP < 3 seconds. Patient is ambulatory. Transformer Repairer strength 5+. Full range of motion in all extremities. Bowel sounds normoactive in all quadrants. Patient void via BRP, clear yellow urine. No IV access at this time. Bed in low position, wheels locked, side rails up x2, call light within reach.
[2019-10-07 20:00] VITALS: BP 107/62
[2019-10-07] MEDS: ZOLPIDEM TARTRATE 10 MG TABLET PO PRN (21:16)
[2019-10-07] MEDS: [UNRECOGNIZED DRUG - OTHER] PO SCH (21:16)
[2019-10-07 21:44] VITALS: BP 107/62
--- NOTE | 2019-10-08 07:05 | NUR ---
MS/RN CLOSING NOTE Patient awake in bed. A/O x4. Breathing even, clear, unlabored, on room air. Patient denies pain. Afebrile. Skin warm, pink, dry, appropriate for ethnicity. Patient is ambulatory. Bowel sounds normoactive in all quadrants. Patient void via BRP, clear yellow urine. No IV access at this time. Bed in low position, wheels locked, side rails up x2, call light within reach.
--- NOTE | 2019-10-08 07:29 | NUR ---
MS RN OPENING NOTES RECEIVED PT ASLEEP IN BED, EASILY AROUSABLE. A/O X 4, SAME ABLE TO MAKE HIS NEEDS KNOWN, NO C/O PAIN OR ANY DISCOMFORTS AT THIS TIME. ON ROOM AIR, RESPIRATIONS ARE EVEN AND UNLABORED WITH EQUAL RISE AND FALL IN CHEST. NO IV ACCESS NOTED. SAFETY PRECAUTIONS IN PLACE: BED IN LOWEST LOCKED POSITION, HOB ELEVATED, SIDE RAILS UP X 2, CALL LIGHT WITHIN REACH. WILL CONTINUE TO MONITOR
[2019-10-08 08:00] VITALS: BP 97/65
[2019-10-08] MEDS: AMLODIPINE PO SCH (08:33)
[2019-10-08] MEDS: BENAZEPRIL PO SCH (08:33)
--- NOTE | 2019-10-08 08:33 | NUR ---
RN NOTES AMLODIPINE BENAZEPRIL 10/40MG NOT GIVEN THIS MORNING, PT WITH LOW BP 97/65 MMHG. WILL CONTINUE TO MONITOR.
[2019-10-08 16:00] VITALS: BP 120/78
--- NOTE | 2019-10-08 18:44 | NUR ---
MS RN CLOSING NOTES PT AWAKE AND RESTING IN BED AT THIS TIME. A/O X 4. ABLE TO MAKE HIS NEEDS KNOWN. AMBULATORY WITH STEADY GAIT. PT NPO AFTER 2100 PER MD ORDER. ON ROOM AIR, RESPIRATIONS ARE EVEN AND UNLABORED. NO IV ACCESS NOTED. ALL NEEDS AND CARE ATTENDED WELL. SAFETY PRECAUTIONS IN PLACE: BED IN LOWEST LOCKED POSITION, SIDE RAILS UP X 2, CALL LIGHT WITHIN REACH. WILL ENDORSE TO STATION ENGINEER CHIEF NURSE FOR EMILY.
[2019-10-08 20:34] VITALS: BP 110/75
--- NOTE | 2019-10-08 21:04 | NUR ---
RN OPENING NOTES PATIENT RECEIVED RESTING IN BED A/O X 4. STABLE ON RA WITH BREATHING EVEN AND UNLABORED, NO SOB NOTED. NO SIGNS OF ACUTE DISTRESS. NO COMPLAINTS OF PAIN OR DISCOMFORT AT THE MOMENT. PATIENT COOPERATIVE. NO SI VOCALIZATIONS. SAFETY PRECAUTIONS IN PLACE WITH BED IN LOWEST POSITION, CALL LIGHT WITHIN REACH, BREAKS ON, SIDE RAILS UP. WILL CONTINUE TO MONITOR THROUGHOUT THE NIGHT.
[2019-10-08] MEDS: [UNRECOGNIZED DRUG - OTHER] PO SCH (21:11)
[2019-10-08] MEDS: ZOLPIDEM TARTRATE 10 MG TABLET PO PRN (21:11)
--- NOTE | 2019-10-09 07:34 | NUR ---
RN CLOSING NOTES PATIENT RESTING IN BED A/O X 4. STABLE ON RA WITH BREATHING EVEN AND UNLABORED, NO SOB NOTED. NO SIGNS OF ACUTE DISTRESS. NO COMPLAINTS OF PAIN OR DISCOMFORT AT THE MOMENT. PATIENT COOPERATIVE. NO SI VOCALIZATIONS. SAFETY PRECAUTIONS IN PLACE WITH BED IN LOWEST POSITION, CALL LIGHT WITHIN REACH, BREAKS ON, SIDE RAILS UP. PATIENT KEPT NPO. ALL NEEDS ATTENDED TO.
--- NOTE | 2019-10-09 07:35 | NUR ---
MS RN OPENING NOTES BEDSIDE ENDORSEMENT DONE. PATIENT IS IN BED, AWAKE AND VERBALLY RESPONSIVE. A/O X 4 AND ABLE TO MAKE HIS NEEDS KNOWN. NO C/O PAIN NOR DISCOMFORT AT THIS TIME. BREATHING EVEN AND UNLABORED, O2 SAT 98% ON AMBIENT AIR. SKIN CLEAR. SAFETY PRECAUTIONS NOTED: BED IN LOWEST LOCKED POSITION, HOB ELEVATED, SIDE RAILS UP X 2, CALL LIGHT WITHIN REACH. ADVISED TO USE CALL LIGHT FOR STAFF ASSISTANCE. WILL MONITOR ACCORDINGLY.
[2019-10-09 08:00] VITALS: BP 111/64
[2019-10-09 08:01] VITALS: BP 111/64
--- NOTE | 2019-10-09 08:48 | NUR ---
RN NOTES RECEIVED CALL FROM DR JOHNSON THAT PT WILL BE DIE OUT WORKER BY ONE OF HIS STAFF TO GO TO HIS OFFICE THEN FROM THERE HE WILL BE DISCHARGED HOME.
[2019-10-09] MEDS: AMLODIPINE PO SCH (09:00)
[2019-10-09] MEDS: BENAZEPRIL PO SCH (09:00)
--- NOTE | 2019-10-09 10:23 | NUR ---
RN DISCHARGED NOTES PT DISCHARGED HOME IN STABLE CONDITION. PT IS A/O X4. ABLE TO MAKE NEEDS KNOWN. V/S TAKEN, STABLE AND RECORDED. ALL BELONGINGS CHECKED, COUNTED AND SIGNED FORM. PT REFUSED SKIN ASSESSMENT. HEALTH TEACHINGS AND DISCHARGED INSTRUCTIONS GIVEN TO PT WITH VERBALIZATION OF UNDERSTANDING. PT PICKED UP BY [facility] ( STAFF FROM DR JOHNSON OFFICE) AND THEY LEFT THE UNIT AMBULATORY AT 0935. PT WILL HAVE BLOOD TEST IN DR JOHNSON'S OFFICE AND AFTER THAT, HE WILL GO HOME. CHARGE NURSE AWARE OF DISCHARGE.
== END 2019-10-09 09:45 | disposition home or self-care (01) | DRG 951 ==
LOC: GPS 14:05 → MEDOV2 08-11 08:50 → MEDSG2 08-30 08:58 → MED 09-11 17:56 → MEDSG2 09-20 10:36 → TELE 09-22 05:56 → MED 09-22 08:28 → MEDSG2 09-23 20:14 → MED 10-05 21:39
PROVIDERS: ADMIT Psychiatry & Neurology Psychiatry; ATTEND Psychiatry & Neurology Psychiatry
DX: Z00.6 Encounter for examination for normal comparison and control in clinical research program (principal); F20.0 Paranoid schizophrenia; F14.20 Cocaine dependence, uncomplicated; I10 Essential (primary) hypertension
CPT/HCPCS: 36415; 80053-TC; 80061-TC; 82962-TC; G0378